=== PATIENT | female | born 1960 | race African-American/Black ===

== ENCOUNTER 2021-06-08 08:50 | Inpatient (IN) ==
[2021-06-08] MEDS ORDERED: DEXTROSE 50% 25 GM/50 ML VIAL IV PRN ×2 (09:06)
[2021-06-08] MEDS ORDERED: GLUCAGON 1 MG VIAL IM PRN ×2 (09:06)
[2021-06-08 09:56] LABS: Basophils % 0.3 % (0.0-0.8); Eosinophils # 0.4 10*3/uL (0.0-0.87); Eosinophils % 5.9 % (0.00-10.9); Hematocrit 32.1 VOL% (35.7-47.0); Hemoglobin 9.5 GM/DL (12.0-16.0); Immature Granulocytes % 0.7 %; Immature Granulocytes Absolute 0.05 #; Lymphocytes # 0.7 10*3/uL (1.4-4.0); Lymphocytes % 9.9 % (21.3-54.2); Mean Corpuscular HGB Conc 29.6 GM/DL (32-36); Mean Corpuscular Volume 86.3 FL (87-102); Mean Platelet Volume 9.5 FL (9.6-12.0); Monocytes % 6.8 % (1.7-12.7); Neutrophils % 76.4 % (38.7-73.9); Platelet Count 328 T/CUMM (130-400); Red Blood Count 3.72 MC/CUMM (3.8-5.5); Red Cell Distribution Width 16.4 % (9.3-17.3)
[2021-06-08] MEDS ORDERED: TRIAMCINOLONE ACETONIDE 0.5% TOP PRN (10:14)
[2021-06-08 10:19] LABS: Alanine Aminotransferase 18 U/L (13-56); Albumin 3.4 G/DL (3.4-5.0); Alkaline Phosphatase 72 U/L (45-117); Aspartate Amino Transferase 30 U/L (0-37); Bilirubin,Total < 0.39 MG/DL (0.20-1.00); Blood Urea Nitrogen 9 MG/DL (7-18); Calcium 8.9 MG/DL (8.5-10.1); Carbon Dioxide 29 MMOL/L (21-32); Estimated Glom Filtration Rate 95 ML/MIN; Glucose 146 MG/DL (74-106); Osmolality,Calculated 271.1 MOS/KG (273-304); Potassium 3.8 MMOL/L (3.5-5.1); Sodium 135 MMOL/L (136-145); Total Protein 8.6 G/DL (6.4-8.2)
[2021-06-08] MEDS: SODIUM CHLORIDE 0.9% 1,000 ML IV SCH (10:40)
[2021-06-08 11:33] LABS: ABG HCO3 27.9 MMOL/L (20-26); ABG Oxygen Saturation 95.9 % (95-100); ABG PCO2 43.1 MM HG (35-48); ABG PH 7.431 (7.35-7.45); ABG PO2 84.1 MM HG (80-95); ABG TCO2 26.1 MMOL/L (23-27)
[2021-06-08] MEDS: INSULIN REGULAR 100 UNIT/ML SUBCUT SCH ×3 (12:56→21:12)
[2021-06-08] MEDS ORDERED: CLORAZEPATE 3.75 MG TABLET PO PRN (12:59)
[2021-06-08] MEDS: CHLORHEXIDINE 4% SOLN 118 ML BOTTLE TOP SCH ×2 (14:06→21:12)
[2021-06-08] MEDS: carvediloL 25 MG TABLET PO SCH (17:24)
[2021-06-08] MEDS ORDERED: FLUTICASONE 50 MCG NASAL SPRAY 16 GM BOTTLE BOTH NARES SCH (21:00)
[2021-06-08] MEDS: CHLORHEXIDINE 0.12% ORAL RINSE 60 ML BOTTLE SWISH/SPIT SCH (21:12)
[2021-06-09] MEDS: CHLORHEXIDINE 4% SOLN 118 ML BOTTLE TOP SCH ×2 (04:00→11:27)
[2021-06-09] MEDS ORDERED: PAPAVERINE 60 MG/2 ML VIAL ONE (04:22)
[2021-06-09] MEDS ORDERED: VANCOMYCIN 500 MG VIAL ONE (04:23)
[2021-06-09] MEDS ORDERED: VANCOMYCIN 1,000 MG VIAL ONE (04:23)
[2021-06-09] MEDS ORDERED: CEFUROXIME INJ 1,500 MG in SODIUM CHLORIDE 0.9% 100 ML IV ONE (05:00)
[2021-06-09] MEDS ORDERED: ETOMIDATE 40 MG/20 ML VIAL IV ONE (05:36)
[2021-06-09] MEDS ORDERED: LACTATED RINGERS 1,000 ML IV ONE (05:36)
[2021-06-09] MEDS ORDERED: MIDAZOLAM 10 MG/2 ML VIAL ONE ×3 (05:36)
[2021-06-09] MEDS ORDERED: SEVOFLURANE 1 UNIT/15 MINUTE INH ONE ×3 (05:36→13:02)
[2021-06-09] MEDS ORDERED: ePHEDrine 50 MG/ML VIAL ONE (05:36)
[2021-06-09] MEDS ORDERED: MINERAL OIL/PETROLATUM OPH OINT 3.5 GM TUBE ONE (05:36)
[2021-06-09] MEDS ORDERED: HEPARIN/NACL 0.9% 2 UNITS/ML 1,000 UNIT/500 ML BAG IV ONE (05:36)
[2021-06-09] MEDS ORDERED: PHENYLEPHRINE 10 MG/1 ML VIAL IV ONE (05:36)
[2021-06-09] MEDS ORDERED: NITROGLYCERIN DRIP 50 MG/250 ML BOTTLE IV ONE ×2 (05:36→09:02)
[2021-06-09] MEDS ORDERED: SODIUM CHLORIDE 0.9% 1,000 ML IV ONE (05:36)
[2021-06-09] MEDS ORDERED: VECURONIUM 10 MG VIAL IV ONE (05:36)
[2021-06-09] MEDS ORDERED: SUFentanil 250 MCG/5 ML AMP ONE (05:36)
[2021-06-09] MEDS ORDERED: CALCIUM CHLORIDE 1,000 MG/10 ML VIAL IV ONE (05:36)
[2021-06-09] MEDS ORDERED: LIDOCAINE 2% 5 ML VIAL ONE ×2 (05:36→11:32)
[2021-06-09] MEDS ORDERED: SODIUM CHLORIDE 0.9% 250 ML IV ONE (05:36)
[2021-06-09] MEDS ORDERED: AMINOCAPROIC ACID 5,000 MG/20 ML VIAL ONE (05:36)
[2021-06-09] MEDS ORDERED: PHENYLEPHRINE 1 MG/10 ML SYRINGE IV ONE (05:53)
[2021-06-09] MEDS ORDERED: LACTATED RINGERS 1,000 ML IV SCH (06:00)
[2021-06-09] MEDS ORDERED: ALBUTEROL 2.5 MG/3 ML NEB RESP TX ONE (06:00)
[2021-06-09] MEDS ORDERED: LORazepam 1 MG TABLET PO ONE (06:00)
[2021-06-09] MEDS ORDERED: FAMOTIDINE 20 MG TABLET PO ONE (06:00)
[2021-06-09] MEDS ORDERED: FUROSEMIDE 20 MG/2 ML VIAL ONE ×3 (06:13→11:31)
[2021-06-09 07:42] LABS: ABG Base Excess 3.1 MMOL/L (-2.5-2.5); ABG HCO3 27.2 MMOL/L (20-26); ABG PCO2 43.4 MM HG (35-48); ABG PH 7.417 (7.35-7.45); ABG TCO2 25.8 MMOL/L (23-27); Glucose Heart Surgery 135 MG/DL (74-106); Hematocrit Heart Surgery 26.7 PERCENT (37-47); Hemoglobin Heart Surgery 8.6 G/DL (12.0-16.0); Ionized Calcium Arterial 1.19 MMOL/L (1.21-1.46); PCO2 Patient Temp Arterial 43.4 MMHG; PH Patient Temp Arterial 7.417; Patient Temperature 37 CELCIUS; Potassium Heart/CVR 3.8 MMOL/L (3.5-5.1); Sodium Heart/CVR 141 MMOL/L (135-145)
[2021-06-09 08:59] LABS: Bilirubin,Urine Negative (Negative); Blood, Urine Negative (Negative); Glucose,Urine (UA) Negative (Negative); Ketones,Urine Negative (Negative); Mucus,Urine Occasional /LPF (Occasional); Nitrite,Urine Negative (Negative); Protein,Urine Negative; RBC,Urine <1 /HPF (0-4); Squamous Epithelial Cell,Urine Occasional /HPF (0-10); Urine Appearance CLEAR (Clear); Urine Color Straw (Yellow); Urine Specific Gravity 1.012 (1.001-1.035); Urine Urobilinogen < 2.0 EU/DL (0.2-1.0)
[2021-06-09] MEDS ORDERED: SODIUM BICARBONATE 50 MEQ/50 ML VIAL IV ONE ×2 (10:24→11:32)
[2021-06-09] MEDS ORDERED: POTASSIUM CHLORIDE RIDER 20 MEQ/100 ML PREMIX IV ONE (10:25)
[2021-06-09] MEDS ORDERED: NITROPRUSSIDE 50 MG/2 ML VIAL ONE (10:25)
[2021-06-09] MEDS ORDERED: CALCIUM CHLORIDE 1,000 MG/10 ML SYRINGE IV ONE (10:26)
[2021-06-09] MEDS ORDERED: PHENYLEPHRINE DRIP 40 MG/250 ML PREMIX IV ONE (10:26)
[2021-06-09] MEDS ORDERED: diphenhydrAMINE 50 MG/1 ML VIAL ONE (10:35)
[2021-06-09] MEDS ORDERED: FAMOTIDINE 20 MG/2 ML VIAL IV ONE (10:35)
[2021-06-09 10:47] LABS: Hematocrit Heart Surgery 28.6 PERCENT (37-47); Hemoglobin Heart Surgery 9.2 G/DL (12.0-16.0); PCO2 Patient Temp Venous 38.6 MM HG; PH Patient Temp Venous 7.462; PO2 Patient Temp Venous 34.8 MM HG; Potassium Heart/CVR 4.7 MMOL/L (3.5-5.1); VBG Base Excess 3.8 MEQ/L (0-4); VBG HCO3 27.5 MEQ/L (24-28); VBG PCO2 44.6 MMHG (41-51); VBG PH 7.418; VBG PO2 42.8 MMHG (17-40); VBG Total CO2 26.6 MMOL/L
[2021-06-09 11:22] LABS: Hematocrit Heart Surgery 25.8 PERCENT (37-47); Hemoglobin Heart Surgery 8.3 G/DL (12.0-16.0); PCO2 Patient Temp Venous 41.3 MM HG; PH Patient Temp Venous 7.439; PO2 Patient Temp Venous 35.2 MM HG; Potassium Heart/CVR 4.1 MMOL/L (3.5-5.1); VBG Base Excess 3.6 MEQ/L (0-4); VBG HCO3 27.1 MEQ/L (24-28); VBG Oxygen Saturation 60.3 %; VBG PCO2 41.3 MMHG (41-51); VBG PH 7.439; VBG PO2 35.2 MMHG (17-40); VBG Total CO2 26.2 MMOL/L
[2021-06-09] MEDS: INSULIN REGULAR 100 UNIT/ML SUBCUT SCH ×2 (11:26→15:08)
[2021-06-09] MEDS: SODIUM CHLORIDE 0.9% 1,000 ML IV SCH (11:27)
[2021-06-09] MEDS: CHLORHEXIDINE 0.12% ORAL RINSE 60 ML BOTTLE SWISH/SPIT SCH ×2 (11:27→20:18)
[2021-06-09] MEDS ORDERED: MANNITOL 100 GM/500 ML BAG IV ONE (11:30)
[2021-06-09] MEDS ORDERED: MAGNESIUM SULFATE 5 GM/10 ML VIAL IV ONE (11:30)
[2021-06-09] MEDS ORDERED: DEXTROSE 5% KCL 20 MEQ 20 MEQ/1,000 ML BAG IV ONE (11:30)
[2021-06-09] MEDS ORDERED: HEPARIN 10,000 UNIT/10 ML VIAL ONE (11:31)
[2021-06-09] MEDS ORDERED: PROTAMINE SULFATE 250 MG/25 ML VIAL IV ONE (11:32)
[2021-06-09] MEDS ORDERED: PROTAMINE SULFATE 50 MG/5 ML VIAL IV ONE (11:32)
[2021-06-09] MEDS ORDERED: methylPREDNISolone SOD SUC 1,000 MG/8 ML VIAL ONE (11:32)
[2021-06-09 11:37] LABS: ABG Base Excess 1.9 MMOL/L (-2.5-2.5); ABG HCO3 26.1 MMOL/L (20-26); ABG PCO2 40.9 MM HG (35-48); ABG PH 7.419 (7.35-7.45); ABG TCO2 25.1 MMOL/L (23-27); Glucose Heart Surgery 248 MG/DL (74-106); Hematocrit Heart Surgery 20.7 PERCENT (37-47); Hemoglobin Heart Surgery 6.6 G/DL (12.0-16.0); Ionized Calcium Arterial 1.17 MMOL/L (1.21-1.46); PCO2 Patient Temp Arterial 40.9 MMHG; PH Patient Temp Arterial 7.419; Patient Temperature 37 CELCIUS; Potassium Heart/CVR 3.2 MMOL/L (3.5-5.1); Sodium Heart/CVR 138 MMOL/L (135-145)
[2021-06-09] MEDS ORDERED: NITROPRUSSIDE 100 MG in DEXTROSE 5% 250 ML IV PRN (11:58)
[2021-06-09] MEDS ORDERED: MAGNESIUM SULF RIDER 2 GM/50 ML PREMIX IV PRN (11:58)
[2021-06-09] MEDS ORDERED: ACETAMINOPHEN 650 MG SUPP RECTAL PRN (11:58)
[2021-06-09] MEDS ORDERED: MIDAZOLAM 2 MG/2 ML VIAL IV PRN (11:58)
[2021-06-09] MEDS ORDERED: ONDANSETRON 4 MG/2 ML VIAL IV PRN (11:58)
[2021-06-09] MEDS ORDERED: INSULIN REGULAR 100 UNIT/ML IV PRN (11:58)
[2021-06-09] MEDS ORDERED: MAGNESIUM SULF RIDER 4 GM/100 ML PREMIX IV PRN (11:58)
[2021-06-09] MEDS ORDERED: CHLORHEXIDINE 4% SOLN 118 ML BOTTLE TOP PRN (11:58)
[2021-06-09] MEDS ORDERED: VECURONIUM 10 MG VIAL IV PRN ×2 (11:58)
[2021-06-09] MEDS ORDERED: CALCIUM CHLORIDE 1,000 MG/10 ML SYRINGE IV PRN (11:58)
[2021-06-09] MEDS ORDERED: MIDAZOLAM 10 MG/2 ML VIAL IV PRN (11:58)
[2021-06-09] MEDS ORDERED: INSULIN REGULAR 100 UNIT/ML IV ONE (11:58)
[2021-06-09] MEDS ORDERED: DEXTROSE 50% 25 GM/50 ML VIAL IV PRN ×2 (11:58)
[2021-06-09] MEDS ORDERED: PHENYLEPHRINE DRIP 40 MG/250 ML PREMIX IV PRN (11:58)
[2021-06-09] MEDS ORDERED: INSULIN REGULAR DRIP 100 ML IV SCH (12:00)
[2021-06-09] MEDS: carvediloL 25 MG TABLET PO SCH (12:00)
[2021-06-09] MEDS ORDERED: SODIUM CHLORIDE 0.45% 1,000 ML IV SCH ×2 (12:00)
[2021-06-09 13:05] LABS: Basophils % 0.2 % (0.0-0.8); Eosinophils # 0.2 10*3/uL (0.0-0.87); Hematocrit 29.6 VOL% (35.7-47.0); Immature Granulocytes % 1.2 %; Immature Granulocytes Absolute 0.13 #; Lymphocytes # 0.7 10*3/uL (1.4-4.0); Lymphocytes % 5.9 % (21.3-54.2); Mean Corpuscular HGB Conc 30.4 GM/DL (32-36); Mean Platelet Volume 9.1 FL (9.6-12.0); Monocytes % 5.9 % (1.7-12.7); Neutrophils % 84.8 % (38.7-73.9); Platelet Count 256 T/CUMM (130-400); Red Blood Count 3.44 MC/CUMM (3.8-5.5); Red Cell Distribution Width 16.2 % (9.3-17.3); White Blood Count 11.3 T/CUMM (4-12)
[2021-06-09] MEDS: ALBUMIN 5% 12.5 GM/250 ML VIAL IV PRN ×2 (13:05→23:44)
[2021-06-09 13:06] LABS: ABG Base Excess 1.9 MMOL/L (-2.5-2.5); ABG HCO3 26.2 MMOL/L (20-26); ABG Oxygen Saturation 99.9 % (95-100); ABG PH 7.411 (7.35-7.45); ABG TCO2 24.5 MMOL/L (23-27); Glucose Heart Surgery 197 MG/DL (74-106); Hematocrit Heart Surgery 29.1 PERCENT (37-47); Hemoglobin Heart Surgery 9.4 G/DL (12.0-16.0); Potassium Heart/CVR 3.9 MMOL/L (3.5-5.1)
[2021-06-09] MEDS: LACTATED RINGERS 250 ML IV PRN ×7 (13:10→16:04)
[2021-06-09 13:17] LABS: INR 1.1; PT Patient Result 11.9 SECS (10.5-12.0); Partial Thromboplastin Time 29.9 SECS (23.9-33.8)
[2021-06-09] MEDS: POTASSIUM CHLORIDE RIDER 20 MEQ/100 ML PREMIX IV PRN ×2 (13:22→16:49)
[2021-06-09 13:24] LABS: CKMB % 1.7 %
[2021-06-09 13:30] LABS: Albumin 3.5 G/DL (3.4-5.0); Bilirubin,Total 0.5 MG/DL (0.20-1.00); Calcium 8.4 MG/DL (8.5-10.1); Osmolality,Calculated 279.5 MOS/KG (273-304); Potassium 3.9 MMOL/L (3.5-5.1); Total Protein 7.8 G/DL (6.4-8.2)
[2021-06-09] MEDS: MORPHINE 10 MG/1 ML VIAL IV PRN ×2 (13:59→19:11)
[2021-06-09 14:25] LABS: ABG Base Excess 2.4 MMOL/L (-2.5-2.5); ABG HCO3 26.6 MMOL/L (20-26); ABG Oxygen Saturation 99.3 % (95-100); ABG PCO2 42.2 MM HG (35-48); ABG PH 7.417 (7.35-7.45); Glucose Heart Surgery 284 MG/DL (74-106); Hematocrit Heart Surgery 28.5 PERCENT (37-47); Hemoglobin Heart Surgery 9.2 G/DL (12.0-16.0); Potassium Heart/CVR 3.9 MMOL/L (3.5-5.1)
[2021-06-09] MEDS: carvediloL 12.5 MG TABLET PER TUBE SCH ×2 (14:59→20:17)
[2021-06-09] MEDS: POTASSIUM CHLORIDE RIDER 10 MEQ/100 ML PREMIX IV PRN ×2 (15:15→17:25)
[2021-06-09 16:13] LABS: ABG Base Excess 1.9 MMOL/L (-2.5-2.5); ABG HCO3 26.8 MMOL/L (20-26); ABG Oxygen Saturation 98.5 % (95-100); ABG PCO2 43.3 MM HG (35-48); ABG PO2 139.7 MM HG (80-95); ABG TCO2 28.2 MMOL/L (23-27); Glucose Heart Surgery 238 MG/DL (74-106); Hemoglobin Heart Surgery 10.7 G/DL (12.0-16.0); Potassium Heart/CVR 3.9 MMOL/L (3.5-5.1)
[2021-06-09] MEDS: KETOROLAC 30 MG/1 ML VIAL IV SCH ×2 (16:50→21:29)
[2021-06-09] MEDS ORDERED: FUROSEMIDE 40 MG/4 ML VIAL IV ONE (18:17)
[2021-06-09] MEDS ORDERED: FUROSEMIDE 40 MG/4 ML VIAL IV PRN (18:17)
[2021-06-09 18:40] LABS: ABG Base Excess 2.1 MMOL/L (-2.5-2.5); ABG HCO3 26.9 MMOL/L (20-26); ABG Oxygen Saturation 98.7 % (95-100); ABG PCO2 42.7 MM HG (35-48); ABG PH 7.417 (7.35-7.45); ABG PO2 161.7 MM HG (80-95); ABG TCO2 28.2 MMOL/L (23-27); Glucose Heart Surgery 120 MG/DL (74-106); Hemoglobin Heart Surgery 11.6 G/DL (12.0-16.0)
[2021-06-09 20:01] LABS: ABG HCO3 26.2 MMOL/L (20-26); ABG Oxygen Saturation 99.1 % (95-100); ABG PCO2 46.5 MM HG (35-48); ABG PH 7.382 (7.35-7.45); ABG TCO2 24.7 MMOL/L (23-27); Glucose Heart Surgery 137 MG/DL (74-106); Hematocrit Heart Surgery 35.6 PERCENT (37-47); Hemoglobin Heart Surgery 11.6 G/DL (12.0-16.0)
[2021-06-09] MEDS: CEFUROXIME INJ 1,500 MG in SODIUM CHLORIDE 0.9% 100 ML IV SCH (20:17)
[2021-06-09 20:24] LABS: CKMB % 1.5 %
[2021-06-09 20:27] LABS: High Sensitive Troponin I* 5501.2 ng/L (0-54)
[2021-06-09 22:02] LABS: ABG Base Excess 2.5 MMOL/L (-2.5-2.5); ABG HCO3 26.6 MMOL/L (20-26); ABG Oxygen Saturation 98.3 % (95-100); ABG PCO2 49.6 MM HG (35-48); ABG PH 7.368 (7.35-7.45); ABG TCO2 25.7 MMOL/L (23-27); Glucose Heart Surgery 135 MG/DL (74-106); Hematocrit Heart Surgery 33.9 PERCENT (37-47); Potassium Heart/CVR 4.1 MMOL/L (3.5-5.1)
[2021-06-09 22:56] LABS: ABG Base Excess 2.2 MMOL/L (-2.5-2.5); ABG HCO3 26.4 MMOL/L (20-26); ABG PCO2 50.2 MM HG (35-48); ABG PH 7.361 (7.35-7.45); ABG TCO2 25.7 MMOL/L (23-27); Glucose Heart Surgery 132 MG/DL (74-106); Hematocrit Heart Surgery 33.7 PERCENT (37-47); Hemoglobin Heart Surgery 10.9 G/DL (12.0-16.0); Potassium Heart/CVR 4.1 MMOL/L (3.5-5.1)
[2021-06-10] MEDS: LACTATED RINGERS 250 ML IV PRN
[2021-06-10 00:04] LABS: ABG Base Excess 1.2 MMOL/L (-2.5-2.5); ABG HCO3 25.5 MMOL/L (20-26); ABG Oxygen Saturation 98.8 % (95-100); ABG PCO2 48.7 MM HG (35-48); ABG PH 7.357 (7.35-7.45); ABG TCO2 24.8 MMOL/L (23-27); Glucose Heart Surgery 126 MG/DL (74-106); Hematocrit Heart Surgery 31.9 PERCENT (37-47); Hemoglobin Heart Surgery 10.3 G/DL (12.0-16.0); Potassium Heart/CVR 4.1 MMOL/L (3.5-5.1)
[2021-06-10 04:00] LABS: ABG Base Excess 1.1 MMOL/L (-2.5-2.5); ABG HCO3 25.4 MMOL/L (20-26); ABG Oxygen Saturation 98.7 % (95-100); ABG PCO2 46.1 MM HG (35-48); ABG PH 7.371 (7.35-7.45); ABG TCO2 24.1 MMOL/L (23-27); Glucose Heart Surgery 149 MG/DL (74-106); Hematocrit Heart Surgery 33.8 PERCENT (37-47); Potassium Heart/CVR 4.1 MMOL/L (3.5-5.1)
[2021-06-10] MEDS: KETOROLAC 30 MG/1 ML VIAL IV SCH ×4 (04:00→21:04)
[2021-06-10 04:22] LABS: Basophils % 0.2 % (0.0-0.8); Hematocrit 34.7 VOL% (35.7-47.0); Hemoglobin 10.8 GM/DL (12.0-16.0); Immature Granulocytes % 1.8 %; Immature Granulocytes Absolute 0.24 #; Lymphocytes # 0.6 10*3/uL (1.4-4.0); Lymphocytes % 4.3 % (21.3-54.2); Mean Corpuscular HGB Conc 31.1 GM/DL (32-36); Mean Corpuscular Volume 85.3 FL (87-102); Mean Platelet Volume 9.7 FL (9.6-12.0); Monocytes % 5.9 % (1.7-12.7); Neutrophils % 87.8 % (38.7-73.9); Platelet Count 258 T/CUMM (130-400); Red Blood Count 4.07 MC/CUMM (3.8-5.5); Red Cell Distribution Width 16.1 % (9.3-17.3)
[2021-06-10 04:27] LABS: Alanine Aminotransferase 19 U/L (13-56); Albumin 3.6 G/DL (3.4-5.0); Alkaline Phosphatase 53 U/L (45-117); Aspartate Amino Transferase 37 U/L (0-37); Bilirubin,Direct < 0.100 MG/DL (0.0-0.20); Bilirubin,Total < 0.39 MG/DL (0.20-1.00); Blood Urea Nitrogen 14 MG/DL (7-18); CKMB % 1.2 %; Calcium 8.4 MG/DL (8.5-10.1); Carbon Dioxide 29 MMOL/L (21-32); Estimated Glom Filtration Rate 129 ML/MIN; Glucose 141 MG/DL (74-106); Osmolality,Calculated 283.3 MOS/KG (273-304); Potassium 4.1 MMOL/L (3.5-5.1); Sodium 141 MMOL/L (136-145); Total Protein 7.4 G/DL (6.4-8.2)
[2021-06-10 04:41] LABS: Hypochromasia Slight; Lymphocytes 1 % (20-55); Microcytosis Slight; Platelet Estimate Adequate; Segmented Neutrophils 91 % (50-85); Total Cells Counted 100
[2021-06-10 04:45] LABS: High Sensitive Troponin I* 5846.5 ng/L (0-54)
[2021-06-10 05:07] LABS: ABG Base Excess 1.6 MMOL/L (-2.5-2.5); ABG HCO3 26.5 MMOL/L (20-26); ABG Oxygen Saturation 97.8 % (95-100); ABG PCO2 43.1 MM HG (35-48); ABG PH 7.407 (7.35-7.45); ABG PO2 109.6 MM HG (80-95); ABG TCO2 27.8 MMOL/L (23-27); Glucose Heart Surgery 144 MG/DL (74-106); Hemoglobin Heart Surgery 11.1 G/DL (12.0-16.0); Potassium Heart/CVR 4.2 MMOL/L (3.5-5.1)
[2021-06-10] MEDS: CEFUROXIME INJ 1,500 MG in SODIUM CHLORIDE 0.9% 100 ML IV SCH ×2 (08:39→20:28)
[2021-06-10] MEDS: carvediloL 12.5 MG TABLET PER TUBE SCH (08:53)
[2021-06-10] MEDS: CHLORHEXIDINE 0.12% ORAL RINSE 60 ML BOTTLE SWISH/SPIT SCH ×2 (08:53→20:28)
[2021-06-10] MEDS ORDERED: FUROSEMIDE 40 MG/4 ML VIAL IV ONE (09:22)
[2021-06-10] MEDS: ASPIRIN EC 325 MG TABLET PO SCH (09:58)
[2021-06-10] MEDS ORDERED: GLUCAGON 1 MG VIAL IM PRN ×2 (10:25)
[2021-06-10] MEDS ORDERED: ALUMINUM/MAGNES/SIMETH MAX STR 30 ML UDCUP PO PRN (10:25)
[2021-06-10] MEDS ORDERED: MAGNESIUM SULF RIDER 2 GM/50 ML PREMIX IV PRN (10:25)
[2021-06-10] MEDS ORDERED: DEXTROSE 50% 25 GM/50 ML VIAL IV PRN ×2 (10:25)
[2021-06-10] MEDS ORDERED: MAGNESIUM HYDROXIDE SUSP 30 ML UDCUP PO PRN (10:25)
[2021-06-10] MEDS ORDERED: SODIUM CHLOR 0.45% KCL 20 MEQ 20 MEQ/1,000 ML BAG IV SCH (10:25)
[2021-06-10] MEDS ORDERED: POTASSIUM CHLORIDE 20 MEQ TABLET PO PRN (10:25)
[2021-06-10] MEDS ORDERED: ONDANSETRON 4 MG/2 ML VIAL IV PRN (10:25)
[2021-06-10] MEDS ORDERED: MAGNESIUM SULF RIDER 4 GM/100 ML PREMIX IV PRN (10:25)
[2021-06-10] MEDS ORDERED: INSULIN REGULAR 100 UNIT/ML SUBCUT SCH ×2 (11:30→12:00)
[2021-06-10 12:07] LABS: CKMB % 1.1 %
[2021-06-10 12:09] LABS: High Sensitive Troponin I* 5208.9 ng/L (0-54)
[2021-06-10] MEDS: INSULIN REGULAR 100 UNIT/ML SUBCUT SCH ×3 (12:09→20:51)
[2021-06-10] MEDS: SIMVASTATIN 10 MG TABLET PO SCH (20:28)
[2021-06-10] MEDS: FLUTICASONE 50 MCG NASAL SPRAY 16 GM BOTTLE BOTH NARES SCH (20:35)
[2021-06-10] MEDS ORDERED: carvediloL 12.5 MG TABLET PO SCH (21:00)
[2021-06-11] MEDS: INSULIN REGULAR 100 UNIT/ML SUBCUT SCH ×6 (01:01→21:36)
[2021-06-11] MEDS: HYDROmorphone 2 MG/1 ML VIAL IV PRN (01:33)
[2021-06-11 04:48] LABS: Basophils % 0.1 % (0.0-0.8); Eosinophils % 0.1 % (0.00-10.9); Hematocrit 32.5 VOL% (35.7-47.0); Hemoglobin 9.8 GM/DL (12.0-16.0); Immature Granulocytes Absolute 0.14 #; Lymphocytes # 0.8 10*3/uL (1.4-4.0); Lymphocytes % 5.6 % (21.3-54.2); Mean Corpuscular HGB Conc 30.2 GM/DL (32-36); Mean Corpuscular Volume 85.8 FL (87-102); Monocytes % 10.4 % (1.7-12.7); Neutrophils % 82.8 % (38.7-73.9); Platelet Count 263 T/CUMM (130-400); Red Blood Count 3.79 MC/CUMM (3.8-5.5); Red Cell Distribution Width 16.3 % (9.3-17.3); White Blood Count 14.1 T/CUMM (4-12)
[2021-06-11] MEDS: KETOROLAC 30 MG/1 ML VIAL IV SCH ×4 (05:08→22:28)
[2021-06-11 05:10] LABS: Alanine Aminotransferase 20 U/L (13-56); Albumin 3.2 G/DL (3.4-5.0); Alkaline Phosphatase 51 U/L (45-117); Aspartate Amino Transferase 28 U/L (0-37); Bilirubin,Direct < 0.100 MG/DL (0.0-0.20); Bilirubin,Total < 0.39 MG/DL (0.20-1.00); Blood Urea Nitrogen 34 MG/DL (7-18); Calcium 8.5 MG/DL (8.5-10.1); Carbon Dioxide 31 MMOL/L (21-32); Estimated Glom Filtration Rate 68 ML/MIN; Glucose 190 MG/DL (74-106); Osmolality,Calculated 285.8 MOS/KG (273-304); Potassium 4.3 MMOL/L (3.5-5.1); Sodium 137 MMOL/L (136-145); Total Protein 7.7 G/DL (6.4-8.2)
[2021-06-11 05:12] LABS: Alanine Aminotransferase 19 U/L (13-56); Albumin 3.1 G/DL (3.4-5.0); Aspartate Amino Transferase 28 U/L (0-37); Bilirubin,Direct < 0.050 MG/DL (0.0-0.20); Bilirubin,Total < 0.39 MG/DL (0.20-1.00); Total Protein 7.7 G/DL (6.4-8.2)
[2021-06-11 05:14] LABS: Alkaline Phosphatase 52 U/L (45-117); Bilirubin,Indirect 0.3 MG/DL (0.0-1.0)
[2021-06-11] MEDS ORDERED: FUROSEMIDE 40 MG/4 ML VIAL IV ONE (06:00)
[2021-06-11] MEDS: FERROUS SULFATE 325 MG TABLET PO SCH (09:26)
[2021-06-11] MEDS: ASPIRIN EC 325 MG TABLET PO SCH (09:26)
[2021-06-11] MEDS: LORATADINE 10 MG TABLET PO SCH (09:27)
[2021-06-11] MEDS: PANTOPRAZOLE 40 MG TABLET PO SCH (09:27)
[2021-06-11] MEDS: METOPROLOL TARTRATE 25 MG TABLET PO SCH ×2 (09:27→21:36)
[2021-06-11] MEDS: FOLIC ACID 1 MG TABLET PO SCH (09:27)
[2021-06-11] MEDS: DOCUSATE SODIUM 100 MG CAPSULE PO SCH (09:27)
[2021-06-11] MEDS: CHLORHEXIDINE 0.12% ORAL RINSE 60 ML BOTTLE SWISH/SPIT SCH ×2 (09:30→21:36)
[2021-06-11] MEDS: LEVOFLOXACIN 500 MG TABLET PO SCH (12:10)
[2021-06-11] MEDS: POLYETHYLENE GLYCOL POWDER 17 GM PACK PO SCH (14:37)
[2021-06-11] MEDS: SIMVASTATIN 10 MG TABLET PO SCH (21:36)
[2021-06-11] MEDS: FLUTICASONE 50 MCG NASAL SPRAY 16 GM BOTTLE BOTH NARES SCH (22:28)
[2021-06-12] MEDS: INSULIN REGULAR 100 UNIT/ML SUBCUT SCH ×6 (00:46→21:08)
[2021-06-12] MEDS: KETOROLAC 30 MG/1 ML VIAL IV SCH ×4 (04:36→21:08)
[2021-06-12 05:16] LABS: Basophils % 0.2 % (0.0-0.8); Eosinophils # 0.2 10*3/uL (0.0-0.87); Eosinophils % 1.4 % (0.00-10.9); Hematocrit 33.4 VOL% (35.7-47.0); Immature Granulocytes % 1.8 %; Immature Granulocytes Absolute 0.19 #; Lymphocytes % 9.5 % (21.3-54.2); Mean Corpuscular HGB Conc 29.9 GM/DL (32-36); Mean Corpuscular Volume 87.7 FL (87-102); Mean Platelet Volume 9.8 FL (9.6-12.0); Monocytes % 13.7 % (1.7-12.7); Neutrophils % 73.4 % (38.7-73.9); Platelet Count 256 T/CUMM (130-400); Red Blood Count 3.81 MC/CUMM (3.8-5.5); Red Cell Distribution Width 16.2 % (9.3-17.3); White Blood Count 10.5 T/CUMM (4-12)
[2021-06-12 05:55] LABS: Alanine Aminotransferase 24 U/L (13-56); Albumin 2.9 G/DL (3.4-5.0); Alkaline Phosphatase 68 U/L (45-117); Aspartate Amino Transferase 31 U/L (0-37); Bilirubin,Direct < 0.100 MG/DL (0.0-0.20); Blood Urea Nitrogen 35 MG/DL (7-18); Calcium 8.7 MG/DL (8.5-10.1); Carbon Dioxide 30 MMOL/L (21-32); Estimated Glom Filtration Rate 75 ML/MIN; Glucose 146 MG/DL (74-106); Osmolality,Calculated 285.7 MOS/KG (273-304); Potassium 3.8 MMOL/L (3.5-5.1); Sodium 138 MMOL/L (136-145); Total Protein 7.5 G/DL (6.4-8.2)
[2021-06-12 05:58] LABS: Alanine Aminotransferase 22 U/L (13-56); Albumin 2.8 G/DL (3.4-5.0); Alkaline Phosphatase 60 U/L (45-117); Aspartate Amino Transferase 32 U/L (0-37); Bilirubin,Direct < 0.050 MG/DL (0.0-0.20); Total Protein 7.3 G/DL (6.4-8.2)
[2021-06-12 06:10] LABS: Bilirubin,Indirect 0.9 MG/DL (0.0-1.0)
[2021-06-12 07:52] LABS: Band Neutrophils 16 % (0-10); Hypochromasia 1+; Metamyelocytes 1 %; Segmented Neutrophils 79 % (50-85); Total Cells Counted 100
[2021-06-12 07:53] LABS: Platelet Estimate Adequate
[2021-06-12] MEDS: POLYETHYLENE GLYCOL POWDER 17 GM PACK PO SCH (08:33)
[2021-06-12] MEDS: FOLIC ACID 1 MG TABLET PO SCH (08:33)
[2021-06-12] MEDS: FERROUS SULFATE 325 MG TABLET PO SCH (08:34)
[2021-06-12] MEDS: LEVOFLOXACIN 500 MG TABLET PO SCH (08:34)
[2021-06-12] MEDS: DOCUSATE SODIUM 100 MG CAPSULE PO SCH (08:34)
[2021-06-12] MEDS: PANTOPRAZOLE 40 MG TABLET PO SCH (08:34)
[2021-06-12] MEDS: METOPROLOL TARTRATE 25 MG TABLET PO SCH ×2 (08:34→21:09)
[2021-06-12] MEDS: LORATADINE 10 MG TABLET PO SCH (08:34)
[2021-06-12] MEDS: ASPIRIN EC 325 MG TABLET PO SCH (08:34)
[2021-06-12] MEDS: PRASUGREL 10 MG TABLET PO SCH (08:35)
[2021-06-12] MEDS: CHLORHEXIDINE 0.12% ORAL RINSE 60 ML BOTTLE SWISH/SPIT SCH ×2 (08:35→21:11)
[2021-06-12] MEDS: FUROSEMIDE 20 MG TABLET PO SCH (08:35)
[2021-06-12] MEDS: FLUTICASONE 50 MCG NASAL SPRAY 16 GM BOTTLE BOTH NARES SCH (21:09)
[2021-06-12] MEDS: SIMVASTATIN 10 MG TABLET PO SCH (21:09)
[2021-06-13] MEDS: INSULIN REGULAR 100 UNIT/ML SUBCUT SCH ×6 (00:11→21:08)
[2021-06-13] MEDS: KETOROLAC 30 MG/1 ML VIAL IV SCH ×4 (03:33→21:06)
[2021-06-13 04:42] LABS: Basophils % 0.3 % (0.0-0.8); Eosinophils # 0.3 10*3/uL (0.0-0.87); Eosinophils % 2.6 % (0.00-10.9); Hematocrit 30.6 VOL% (35.7-47.0); Hemoglobin 9.2 GM/DL (12.0-16.0); Immature Granulocytes % 3.7 %; Lymphocytes % 9.6 % (21.3-54.2); Mean Corpuscular HGB Conc 30.1 GM/DL (32-36); Mean Corpuscular Volume 87.4 FL (87-102); Mean Platelet Volume 10.1 FL (9.6-12.0); Monocytes % 11.9 % (1.7-12.7); Neutrophils % 71.9 % (38.7-73.9); Platelet Count 287 T/CUMM (130-400); Red Cell Distribution Width 15.9 % (9.3-17.3); White Blood Count 10.7 T/CUMM (4-12)
[2021-06-13 05:04] LABS: Albumin 2.7 G/DL (3.4-5.0); Bilirubin,Total 0.4 MG/DL (0.20-1.00); Calcium 8.6 MG/DL (8.5-10.1); Osmolality,Calculated 284.5 MOS/KG (273-304); Potassium 3.7 MMOL/L (3.5-5.1); Total Protein 7.4 G/DL (6.4-8.2)
[2021-06-13] MEDS ORDERED: LACTULOSE 20 GM/30 ML UDCUP PO PRN (08:26)
[2021-06-13] MEDS: FUROSEMIDE 20 MG TABLET PO SCH (09:02)
[2021-06-13] MEDS: FOLIC ACID 1 MG TABLET PO SCH (09:02)
[2021-06-13] MEDS: PANTOPRAZOLE 40 MG TABLET PO SCH (09:03)
[2021-06-13] MEDS: FERROUS SULFATE 325 MG TABLET PO SCH (09:03)
[2021-06-13] MEDS: ASPIRIN EC 81 MG TABLET PO SCH (09:03)
[2021-06-13] MEDS: LEVOFLOXACIN 500 MG TABLET PO SCH (09:03)
[2021-06-13] MEDS: DOCUSATE SODIUM 100 MG CAPSULE PO SCH (09:03)
[2021-06-13] MEDS: CHLORHEXIDINE 0.12% ORAL RINSE 60 ML BOTTLE SWISH/SPIT SCH ×2 (09:04→21:16)
[2021-06-13] MEDS: METOPROLOL TARTRATE 25 MG TABLET PO SCH ×2 (09:04→21:07)
[2021-06-13] MEDS: POLYETHYLENE GLYCOL POWDER 17 GM PACK PO SCH (09:04)
[2021-06-13] MEDS: PRASUGREL 10 MG TABLET PO SCH (09:04)
[2021-06-13] MEDS: LORATADINE 10 MG TABLET PO SCH (09:04)
[2021-06-13] MEDS: SIMVASTATIN 10 MG TABLET PO SCH (21:07)
[2021-06-13] MEDS: FLUTICASONE 50 MCG NASAL SPRAY 16 GM BOTTLE BOTH NARES SCH (21:08)
[2021-06-14] MEDS: ACETAMINOPHEN 325 MG TABLET PO PRN (00:13)
[2021-06-14] MEDS: INSULIN REGULAR 100 UNIT/ML SUBCUT SCH ×7 (00:13→22:46)
[2021-06-14] MEDS: KETOROLAC 30 MG/1 ML VIAL IV SCH ×2 (04:05→10:20)
[2021-06-14 05:19] LABS: Basophils % 0.3 % (0.0-0.8); Eosinophils # 0.4 10*3/uL (0.0-0.87); Hematocrit 28.3 VOL% (35.7-47.0); Hemoglobin 8.6 GM/DL (12.0-16.0); Immature Granulocytes % 3.6 %; Immature Granulocytes Absolute 0.34 #; Lymphocytes % 10.5 % (21.3-54.2); Mean Corpuscular HGB Conc 30.4 GM/DL (32-36); Mean Corpuscular Volume 86.8 FL (87-102); Mean Platelet Volume 9.8 FL (9.6-12.0); Neutrophils % 68.6 % (38.7-73.9); Platelet Count 315 T/CUMM (130-400); Red Blood Count 3.26 MC/CUMM (3.8-5.5); Red Cell Distribution Width 15.7 % (9.3-17.3); White Blood Count 9.5 T/CUMM (4-12)
[2021-06-14 05:39] LABS: Alanine Aminotransferase 49 U/L (13-56); Albumin 2.7 G/DL (3.4-5.0); Alkaline Phosphatase 102 U/L (45-117); Aspartate Amino Transferase 47 U/L (0-37); Bilirubin,Direct < 0.100 MG/DL (0.0-0.20); Bilirubin,Indirect 0.3 MG/DL (0.0-1.0); Bilirubin,Total < 0.39 MG/DL (0.20-1.00); Blood Urea Nitrogen 15 MG/DL (7-18); Calcium 8.5 MG/DL (8.5-10.1); Carbon Dioxide 29 MMOL/L (21-32); Estimated Glom Filtration Rate 110 ML/MIN; Glucose 160 MG/DL (74-106); Osmolality,Calculated 280.5 MOS/KG (273-304); Potassium 4.1 MMOL/L (3.5-5.1); Sodium 139 MMOL/L (136-145); Total Protein 7.4 G/DL (6.4-8.2)
[2021-06-14] MEDS: ASPIRIN EC 81 MG TABLET PO SCH (09:39)
[2021-06-14] MEDS: METOPROLOL TARTRATE 25 MG TABLET PO SCH ×2 (09:39→20:37)
[2021-06-14] MEDS: LORATADINE 10 MG TABLET PO SCH (09:39)
[2021-06-14] MEDS: FUROSEMIDE 20 MG TABLET PO SCH (09:39)
[2021-06-14] MEDS: POLYETHYLENE GLYCOL POWDER 17 GM PACK PO SCH (09:40)
[2021-06-14] MEDS: DOCUSATE SODIUM 100 MG CAPSULE PO SCH (09:40)
[2021-06-14] MEDS: FOLIC ACID 1 MG TABLET PO SCH (09:40)
[2021-06-14] MEDS: LEVOFLOXACIN 500 MG TABLET PO SCH (09:40)
[2021-06-14] MEDS: FERROUS SULFATE 325 MG TABLET PO SCH (09:40)
[2021-06-14] MEDS: PRASUGREL 10 MG TABLET PO SCH (09:40)
[2021-06-14] MEDS: CHLORHEXIDINE 0.12% ORAL RINSE 60 ML BOTTLE SWISH/SPIT SCH ×2 (09:42→20:36)
[2021-06-14] MEDS: PANTOPRAZOLE 40 MG TABLET PO SCH (09:43)
[2021-06-14] MEDS: SIMVASTATIN 10 MG TABLET PO SCH (20:37)
[2021-06-14] MEDS: FLUTICASONE 50 MCG NASAL SPRAY 16 GM BOTTLE BOTH NARES SCH (20:37)
[2021-06-14] MEDS: oxyCODONE/ACETAMINOPHEN 5-325 MG TABLET PO PRN ×2 (20:38→23:06)
[2021-06-14] MEDS: ZALEPLON 5 MG CAPSULE PO PRN (23:05)
[2021-06-15 06:06] LABS: Basophils % 0.4 % (0.0-0.8); Eosinophils # 0.3 10*3/uL (0.0-0.87); Eosinophils % 3.4 % (0.00-10.9); Hematocrit 34.7 VOL% (35.7-47.0); Immature Granulocytes % 4.6 %; Immature Granulocytes Absolute 0.39 #; Lymphocytes % 11.6 % (21.3-54.2); Mean Corpuscular HGB Conc 30.8 GM/DL (32-36); Mean Corpuscular Volume 84.4 FL (87-102); Mean Platelet Volume 10.3 FL (9.6-12.0); Monocytes % 15.1 % (1.7-12.7); Neutrophils % 64.9 % (38.7-73.9); Platelet Count 303 T/CUMM (130-400); Red Cell Distribution Width 15.5 % (9.3-17.3); White Blood Count 8.5 T/CUMM (4-12)
[2021-06-15 06:20] LABS: Hemoglobin 10.7 GM/DL (12.0-16.0); Red Blood Count 4.11 MC/CUMM (3.8-5.5)
[2021-06-15 06:42] LABS: Alanine Aminotransferase 37 U/L (13-56); Albumin 2.8 G/DL (3.4-5.0); Alkaline Phosphatase 98 U/L (45-117); Aspartate Amino Transferase 28 U/L (0-37); Bilirubin,Direct < 0.100 MG/DL (0.0-0.20); Bilirubin,Indirect 1.3 MG/DL (0.0-1.0); Blood Urea Nitrogen 14 MG/DL (7-18); Calcium 9.2 MG/DL (8.5-10.1); Carbon Dioxide 28 MMOL/L (21-32); Estimated Glom Filtration Rate 95 ML/MIN; Glucose 156 MG/DL (74-106); Osmolality,Calculated 280.5 MOS/KG (273-304); Potassium 4.2 MMOL/L (3.5-5.1); Sodium 139 MMOL/L (136-145); Total Protein 7.6 G/DL (6.4-8.2)
[2021-06-15] MEDS: INSULIN REGULAR 100 UNIT/ML SUBCUT SCH ×4 (08:53→22:22)
[2021-06-15] MEDS ORDERED: sitaGLIPtin 25 MG TABLET PO SCH (09:00)
[2021-06-15] MEDS: POLYETHYLENE GLYCOL POWDER 17 GM PACK PO SCH (09:31)
[2021-06-15] MEDS: DOCUSATE SODIUM 100 MG CAPSULE PO SCH (09:32)
[2021-06-15] MEDS: FOLIC ACID 1 MG TABLET PO SCH (09:32)
[2021-06-15] MEDS: oxyCODONE/ACETAMINOPHEN 5-325 MG TABLET PO PRN (09:33)
[2021-06-15] MEDS: FUROSEMIDE 20 MG TABLET PO SCH (09:33)
[2021-06-15] MEDS: METOPROLOL TARTRATE 50 MG TABLET PO SCH ×2 (09:33→22:20)
[2021-06-15] MEDS: LEVOFLOXACIN 500 MG TABLET PO SCH (09:33)
[2021-06-15] MEDS: PANTOPRAZOLE 40 MG TABLET PO SCH (09:33)
[2021-06-15] MEDS: LORATADINE 10 MG TABLET PO SCH (09:34)
[2021-06-15] MEDS: ASPIRIN EC 81 MG TABLET PO SCH (09:34)
[2021-06-15] MEDS: FERROUS SULFATE 325 MG TABLET PO SCH (09:34)
[2021-06-15] MEDS: PRASUGREL 10 MG TABLET PO SCH (09:34)
[2021-06-15] MEDS: CHLORHEXIDINE 0.12% ORAL RINSE 60 ML BOTTLE SWISH/SPIT SCH ×2 (09:39→22:19)
[2021-06-15] MEDS: KETOROLAC 30 MG/1 ML VIAL IV SCH ×3 (10:57→22:21)
[2021-06-15] MEDS: ACETAMINOPHEN 325 MG TABLET PO PRN (11:05)
[2021-06-15 12:41] LABS: Bacteria,Urine Occasional /HPF (Few); Bilirubin,Urine Negative (Negative); Blood, Urine Negative (Negative); Glucose,Urine (UA) Negative (Negative); Ketones,Urine Negative (Negative); Mucus,Urine Occasional /LPF (Occasional); Nitrite,Urine Negative (Negative); Protein,Urine 30 MG/DL; RBC,Urine 3 /HPF (0-4); Squamous Epithelial Cell,Urine Occasional /HPF (0-10); Urine Appearance CLEAR (Clear); Urine Color Yellow (Yellow); Urine Specific Gravity 1.018 (1.001-1.035); Urine Urobilinogen < 2.0 EU/DL (0.2-1.0)
[2021-06-15] MEDS: ALBUTEROL/IPRATROPIUM 3 ML NEB RESP TX SCH ×2 (13:03→19:35)
[2021-06-15] MEDS: FLUTICASONE 50 MCG NASAL SPRAY 16 GM BOTTLE BOTH NARES SCH (22:19)
[2021-06-15] MEDS: SIMVASTATIN 10 MG TABLET PO SCH (22:20)
[2021-06-16] MEDS: ALBUTEROL/IPRATROPIUM 3 ML NEB RESP TX SCH ×4 (01:49→19:50)
[2021-06-16 05:54] LABS: Basophils % 0.3 % (0.0-0.8); Eosinophils # 0.2 10*3/uL (0.0-0.87); Eosinophils % 2.8 % (0.00-10.9); Hematocrit 39.8 VOL% (35.7-47.0); Hemoglobin 12.1 GM/DL (12.0-16.0); Immature Granulocytes % 3.7 %; Immature Granulocytes Absolute 0.29 #; Lymphocytes # 0.7 10*3/uL (1.4-4.0); Lymphocytes % 9.1 % (21.3-54.2); Mean Corpuscular HGB Conc 30.4 GM/DL (32-36); Mean Corpuscular Volume 85.4 FL (87-102); Mean Platelet Volume 10.2 FL (9.6-12.0); Neutrophils % 70.1 % (38.7-73.9); Platelet Count 217 T/CUMM (130-400); Red Blood Count 4.66 MC/CUMM (3.8-5.5); Red Cell Distribution Width 15.8 % (9.3-17.3); White Blood Count 7.8 T/CUMM (4-12)
[2021-06-16 06:09] LABS: Calcium 8.8 MG/DL (8.5-10.1); Osmolality,Calculated 278.8 MOS/KG (273-304); Potassium 4.1 MMOL/L (3.5-5.1)
[2021-06-16] MEDS: KETOROLAC 30 MG/1 ML VIAL IV SCH (06:31)
[2021-06-16] MEDS ORDERED: KETOROLAC 30 MG/1 ML VIAL IV PRN ×2 (07:08→07:14)
[2021-06-16] MEDS ORDERED: METHOTREXATE 2.5 MG TABLET PO SCH (09:00)
[2021-06-16] MEDS: POLYETHYLENE GLYCOL POWDER 17 GM PACK PO SCH (10:32)
[2021-06-16] MEDS: DOCUSATE SODIUM 100 MG CAPSULE PO SCH (10:33)
[2021-06-16] MEDS: PRASUGREL 10 MG TABLET PO SCH (10:33)
[2021-06-16] MEDS: sitaGLIPtin 25 MG TABLET PO SCH (10:33)
[2021-06-16] MEDS: PANTOPRAZOLE 40 MG TABLET PO SCH (10:33)
[2021-06-16] MEDS: LEVOFLOXACIN 500 MG TABLET PO SCH (10:35)
[2021-06-16] MEDS: LORATADINE 10 MG TABLET PO SCH (10:35)
[2021-06-16] MEDS: METOPROLOL TARTRATE 50 MG TABLET PO SCH ×2 (10:35→21:28)
[2021-06-16] MEDS: FUROSEMIDE 20 MG TABLET PO SCH (10:36)
[2021-06-16] MEDS: ASPIRIN EC 81 MG TABLET PO SCH (10:36)
[2021-06-16] MEDS: FERROUS SULFATE 325 MG TABLET PO SCH (10:37)
[2021-06-16] MEDS: CHLORHEXIDINE 0.12% ORAL RINSE 60 ML BOTTLE SWISH/SPIT SCH ×2 (10:37→21:29)
[2021-06-16] MEDS: FOLIC ACID 1 MG TABLET PO SCH (10:37)
[2021-06-16] MEDS: INSULIN REGULAR 100 UNIT/ML SUBCUT SCH ×4 (10:38→21:29)
[2021-06-16] MEDS: oxyCODONE/ACETAMINOPHEN 5-325 MG TABLET PO PRN ×2 (16:53→22:09)
[2021-06-16] MEDS: SIMVASTATIN 10 MG TABLET PO SCH (21:28)
[2021-06-16] MEDS: FLUTICASONE 50 MCG NASAL SPRAY 16 GM BOTTLE BOTH NARES SCH (21:29)
[2021-06-16] MEDS: ZALEPLON 5 MG CAPSULE PO PRN (22:09)
[2021-06-16] MEDS: BUDESONIDE/FORMOTEROL 160-4.5 INHALER 6 GM INH SCH (22:41)
[2021-06-17] MEDS: ALBUTEROL/IPRATROPIUM 3 ML NEB RESP TX SCH ×4 (00:44→23:06)
[2021-06-17] MEDS: HYDROmorphone 2 MG/1 ML VIAL IV PRN (02:07)
[2021-06-17] MEDS ORDERED: BENZONATATE 100 MG CAPSULE PO PRN (03:10)
[2021-06-17] MEDS: BENZONATATE 100 MG CAPSULE PO PRN ×2 (03:32→23:45)
[2021-06-17 07:42] LABS: Calcium 8.9 MG/DL (8.5-10.1); Osmolality,Calculated 273.4 MOS/KG (273-304); Potassium 4.4 MMOL/L (3.5-5.1)
[2021-06-17] MEDS: LEVOFLOXACIN 500 MG TABLET PO SCH (09:08)
[2021-06-17] MEDS: FERROUS SULFATE 325 MG TABLET PO SCH (09:08)
[2021-06-17] MEDS: PRASUGREL 10 MG TABLET PO SCH (09:08)
[2021-06-17] MEDS: POLYETHYLENE GLYCOL POWDER 17 GM PACK PO SCH (09:08)
[2021-06-17] MEDS: sitaGLIPtin 25 MG TABLET PO SCH (09:08)
[2021-06-17] MEDS: LORATADINE 10 MG TABLET PO SCH (09:08)
[2021-06-17] MEDS: INSULIN REGULAR 100 UNIT/ML SUBCUT SCH ×4 (09:08→20:34)
[2021-06-17] MEDS: PANTOPRAZOLE 40 MG TABLET PO SCH (09:08)
[2021-06-17] MEDS: METOPROLOL TARTRATE 50 MG TABLET PO SCH ×2 (09:08→20:38)
[2021-06-17] MEDS: FUROSEMIDE 20 MG TABLET PO SCH (09:09)
[2021-06-17] MEDS: DOCUSATE SODIUM 100 MG CAPSULE PO SCH (09:09)
[2021-06-17] MEDS: ASPIRIN EC 81 MG TABLET PO SCH (09:09)
[2021-06-17] MEDS: BUDESONIDE/FORMOTEROL 160-4.5 INHALER 6 GM INH SCH ×2 (09:09→20:33)
[2021-06-17] MEDS: CHLORHEXIDINE 0.12% ORAL RINSE 60 ML BOTTLE SWISH/SPIT SCH ×2 (09:09→20:33)
[2021-06-17] MEDS: FOLIC ACID 1 MG TABLET PO SCH (09:09)
[2021-06-17] MEDS: oxyCODONE/ACETAMINOPHEN 5-325 MG TABLET PO PRN ×2 (13:56→20:31)
[2021-06-17] MEDS: SIMVASTATIN 10 MG TABLET PO SCH (20:31)
[2021-06-17] MEDS: FLUTICASONE 50 MCG NASAL SPRAY 16 GM BOTTLE BOTH NARES SCH (20:33)
[2021-06-17] MEDS: ACETAMINOPHEN 325 MG TABLET PO PRN (23:46)
[2021-06-18] MEDS: ALBUTEROL/IPRATROPIUM 3 ML NEB RESP TX SCH ×2 (00:50→07:07)
[2021-06-18 04:06] LABS: Basophils % 0.3 % (0.0-0.8); Eosinophils # 0.3 10*3/uL (0.0-0.87); Eosinophils % 3.6 % (0.00-10.9); Hematocrit 26.5 VOL% (35.7-47.0); Immature Granulocytes % 2.4 %; Immature Granulocytes Absolute 0.23 #; Lymphocytes # 1.3 10*3/uL (1.4-4.0); Lymphocytes % 13.2 % (21.3-54.2); Mean Corpuscular HGB Conc 30.2 GM/DL (32-36); Mean Corpuscular Volume 87.2 FL (87-102); Mean Platelet Volume 10.1 FL (9.6-12.0); Monocytes % 10.7 % (1.7-12.7); Neutrophils % 69.8 % (38.7-73.9); Red Cell Distribution Width 15.6 % (9.3-17.3); White Blood Count 9.5 T/CUMM (4-12)
[2021-06-18 04:10] LABS: Red Blood Count 3.04 MC/CUMM (3.8-5.5)
[2021-06-18 04:11] LABS: Platelet Count 318 T/CUMM (130-400)
[2021-06-18 04:36] LABS: Eosinophils 4 % (0-10); Lymphocytes 8 % (20-55); Metamyelocytes 3 %; Platelet Estimate Adequate; Segmented Neutrophils 70 % (50-85); Total Cells Counted 100
[2021-06-18] MEDS: oxyCODONE/ACETAMINOPHEN 5-325 MG TABLET PO PRN (06:16)
[2021-06-18] MEDS: INSULIN REGULAR 100 UNIT/ML SUBCUT SCH ×2 (09:06→12:40)
[2021-06-18 09:15] VITALS: BP 134/86
[2021-06-18] MEDS: POLYETHYLENE GLYCOL POWDER 17 GM PACK PO SCH (09:39)
[2021-06-18] MEDS: PRASUGREL 10 MG TABLET PO SCH (09:39)
[2021-06-18] MEDS: LEVOFLOXACIN 500 MG TABLET PO SCH (09:39)
[2021-06-18] MEDS: METOPROLOL TARTRATE 50 MG TABLET PO SCH (09:40)
[2021-06-18] MEDS: DOCUSATE SODIUM 100 MG CAPSULE PO SCH (09:40)
[2021-06-18] MEDS: FERROUS SULFATE 325 MG TABLET PO SCH (09:40)
[2021-06-18] MEDS: ASPIRIN EC 81 MG TABLET PO SCH (09:40)
[2021-06-18] MEDS: FOLIC ACID 1 MG TABLET PO SCH (09:40)
[2021-06-18] MEDS: PANTOPRAZOLE 40 MG TABLET PO SCH (09:40)
[2021-06-18] MEDS: FUROSEMIDE 20 MG TABLET PO SCH (09:40)
[2021-06-18] MEDS: CHLORHEXIDINE 0.12% ORAL RINSE 60 ML BOTTLE SWISH/SPIT SCH (09:41)
[2021-06-18] MEDS: sitaGLIPtin 25 MG TABLET PO SCH (09:41)
[2021-06-18] MEDS: LORATADINE 10 MG TABLET PO SCH (09:41)
[2021-06-18] MEDS: BUDESONIDE/FORMOTEROL 160-4.5 INHALER 6 GM INH SCH (09:42)
[2021-06-18] MEDS: BENZONATATE 100 MG CAPSULE PO PRN (11:47)
== END 2021-06-18 13:23 | disposition home health service (06) | DRG 236 ==
LOC: N.TELES 09:04 → N.CVR 06-09 11:53 → N.TELES 06-10 11:12

== ENCOUNTER 2021-09-09 14:09 | Inpatient (IN) ==
[2021-09-09] MEDS ORDERED: ALBUTEROL/IPRATROPIUM 3 ML NEB RESP TX STA (22:44)
[2021-09-09] MEDS ORDERED: LEVOFLOXACIN INJ 750 MG/150 ML PREMIX IV STA (22:44)
[2021-09-09] MEDS ORDERED: methylPREDNISolone SOD SUC 125 MG/2 ML VIAL IV STA (22:44)
[2021-09-09] MEDS ORDERED: FUROSEMIDE 100 MG/10 ML VIAL IV STA (22:44)
[2021-09-09] MEDS ORDERED: ONDANSETRON 4 MG/2 ML VIAL IV STA (22:44)
[2021-09-09 23:30] LABS: Basophils % 0.2 % (0.0-0.8); Eosinophils # 1.1 10*3/uL (0.0-0.87); Eosinophils % 12.2 % (0.00-10.9); Immature Granulocytes % 0.9 %; Immature Granulocytes Absolute 0.08 #; Lymphocytes # 0.8 10*3/uL (1.4-4.0); Lymphocytes % 9.5 % (21.3-54.2); Mean Platelet Volume 9.2 FL (9.6-12.0); Monocytes % 7.8 % (1.7-12.7); Neutrophils % 69.4 % (38.7-73.9); Platelet Count 369 T/CUMM (130-400); Red Blood Count 3.57 MC/CUMM (3.8-5.5); Red Cell Distribution Width 17.2 % (9.3-17.3); White Blood Count 8.9 T/CUMM (4-12)
[2021-09-09 23:40] LABS: PT Patient Result 11.7 SECS (10.5-12.0)
[2021-09-09 23:54] LABS: Alanine Aminotransferase 33 U/L (13-56); Albumin 2.6 G/DL (3.4-5.0); Alkaline Phosphatase 75 U/L (45-117); Aspartate Amino Transferase 49 U/L (0-37); Bilirubin,Total < 0.39 MG/DL (0.20-1.00); Blood Urea Nitrogen 13 MG/DL (7-18); Calcium 8.7 MG/DL (8.5-10.1); Carbon Dioxide 27 MMOL/L (21-32); Estimated Glom Filtration Rate 92 ML/MIN; Glucose 240 MG/DL (74-106); Osmolality,Calculated 269.7 MOS/KG (273-304); Potassium 3.7 MMOL/L (3.5-5.1); Sodium 131 MMOL/L (136-145); Total Protein 7.8 G/DL (6.4-8.2)
[2021-09-10 00:31] LABS: Bilirubin,Urine Negative (Negative); Blood, Urine Negative (Negative); Glucose,Urine (UA) Negative (Negative); Hyaline Casts,Urine 7 /LPF (0-3); Ketones,Urine Negative (Negative); Mucus,Urine Occasional /LPF (Occasional); Nitrite,Urine Negative (Negative); Protein,Urine 30 MG/DL; RBC,Urine 2 /HPF (0-4); Squamous Epithelial Cell,Urine Occasional /HPF (0-10); Urine Appearance CLEAR (Clear); Urine Color Yellow (Yellow); Urine Specific Gravity 1.015 (1.001-1.035); Urine Urobilinogen < 2.0 EU/DL (<2.0)
[2021-09-10 01:19] LABS: Eosinophils 10 % (0-10); Lymphocytes 10 % (20-55); Segmented Neutrophils 76 % (50-85)
[2021-09-10 01:27] LABS: Hypochromia 2+; Platelet Estimate Normal
[2021-09-10 01:28] LABS: Ovalocytes 1+; Reactive Lymphocytes Few; Total Cells Counted 100
[2021-09-10] MEDS ORDERED: ALUMINUM/MAGNES/SIMETH MAX STR 30 ML UDCUP PO PRN (01:57)
[2021-09-10] MEDS ORDERED: ONDANSETRON 4 MG/2 ML VIAL IV PRN (01:57)
[2021-09-10] MEDS ORDERED: hydrALAZINE 20 MG/1 ML VIAL IV PRN (01:57)
[2021-09-10] MEDS ORDERED: diphenhydrAMINE 2% CREAM 28 GM TUBE TOP PRN (01:57)
[2021-09-10] MEDS ORDERED: GLUCAGON 1 MG VIAL IM PRN (01:57)
[2021-09-10] MEDS ORDERED: DEXTROSE 50% 25 GM/50 ML SYRINGE IV PRN (01:57)
[2021-09-10] MEDS: diphenhydrAMINE CAP 25 MG CAPSULE PO PRN (02:51)
[2021-09-10 04:58] LABS: Basophils % 0.1 % (0.0-0.8); Eosinophils # 0.1 10*3/uL (0.0-0.87); Eosinophils % 0.9 % (0.00-10.9); Hematocrit 32.5 VOL% (35.7-47.0); Hemoglobin 9.5 GM/DL (12.0-16.0); Immature Granulocytes % 0.8 %; Immature Granulocytes Absolute 0.07 #; Lymphocytes # 0.6 10*3/uL (1.4-4.0); Lymphocytes % 6.6 % (21.3-54.2); Mean Corpuscular HGB Conc 29.2 GM/DL (32-36); Mean Corpuscular Volume 85.3 FL (87-102); Mean Platelet Volume 9.5 FL (9.6-12.0); Monocytes % 2.3 % (1.7-12.7); Neutrophils % 89.3 % (38.7-73.9); Platelet Count 386 T/CUMM (130-400); Red Blood Count 3.81 MC/CUMM (3.8-5.5); Red Cell Distribution Width 17.3 % (9.3-17.3); White Blood Count 8.7 T/CUMM (4-12)
[2021-09-10 05:15] LABS: Calcium 8.7 MG/DL (8.5-10.1); Osmolality,Calculated 277.4 MOS/KG (273-304); Potassium 4.3 MMOL/L (3.5-5.1)
[2021-09-10] MEDS: ALBUTEROL/IPRATROPIUM 3 ML NEB RESP TX SCH ×3 (07:00→19:35)
[2021-09-10] MEDS ORDERED: INFLUENZA VIRUS VACCINE 0.5 ML SYRINGE IM ONE (07:40)
[2021-09-10] MEDS ORDERED: methylPREDNISolone SOD SUC 40 MG/1 ML VIAL IV SCH (09:00)
[2021-09-10] MEDS: FAMOTIDINE 20 MG TABLET PO SCH ×2 (09:03→21:44)
[2021-09-10] MEDS: PANTOPRAZOLE 40 MG TABLET PO SCH (09:03)
[2021-09-10] MEDS: INSULIN LISPRO 100 UNIT/ML SUBCUT SCH ×4 (09:03→21:45)
[2021-09-10] MEDS: ENOXAPARIN 40 MG/0.4 ML SYRINGE SUBCUT SCH (09:04)
[2021-09-10] MEDS: KETOCONAZOLE 2% CREAM 30 GM TUBE TOP SCH ×2 (11:06→21:46)
[2021-09-10] MEDS ORDERED: FUROSEMIDE 40 MG/4 ML VIAL IV SCH (14:30)
[2021-09-10] MEDS: LEVOFLOXACIN INJ 750 MG/150 ML PREMIX IV SCH (21:40)
[2021-09-11] MEDS: ALBUTEROL/IPRATROPIUM 3 ML NEB RESP TX SCH ×4 (00:30→20:30)
[2021-09-11] MEDS: diphenhydrAMINE CAP 25 MG CAPSULE PO PRN ×2 (03:36→23:00)
[2021-09-11 05:42] LABS: Basophils % 0.1 % (0.0-0.8); Eosinophils % 0.1 % (0.00-10.9); Hematocrit 29.2 VOL% (35.7-47.0); Hemoglobin 8.5 GM/DL (12.0-16.0); Immature Granulocytes % 0.7 %; Immature Granulocytes Absolute 0.07 #; Lymphocytes # 0.6 10*3/uL (1.4-4.0); Lymphocytes % 5.9 % (21.3-54.2); Mean Corpuscular HGB Conc 29.1 GM/DL (32-36); Mean Corpuscular Volume 85.9 FL (87-102); Mean Platelet Volume 9.8 FL (9.6-12.0); Monocytes % 8.1 % (1.7-12.7); Neutrophils % 85.1 % (38.7-73.9); Platelet Count 383 T/CUMM (130-400); Red Cell Distribution Width 17.2 % (9.3-17.3)
[2021-09-11 06:06] LABS: Calcium 8.9 MG/DL (8.5-10.1); Osmolality,Calculated 278.4 MOS/KG (273-304); Potassium 4.3 MMOL/L (3.5-5.1)
[2021-09-11] MEDS: ENOXAPARIN 40 MG/0.4 ML SYRINGE SUBCUT SCH (08:13)
[2021-09-11] MEDS: FAMOTIDINE 20 MG TABLET PO SCH ×2 (08:13→20:54)
[2021-09-11] MEDS: FOLIC ACID 1 MG TABLET PO SCH (08:13)
[2021-09-11] MEDS: FUROSEMIDE 20 MG TABLET PO SCH (08:13)
[2021-09-11] MEDS: INSULIN LISPRO 100 UNIT/ML SUBCUT SCH ×4 (08:13→20:51)
[2021-09-11] MEDS: LORATADINE 10 MG TABLET PO SCH (08:14)
[2021-09-11] MEDS: PANTOPRAZOLE 40 MG TABLET PO SCH (08:14)
[2021-09-11] MEDS: ASPIRIN EC 81 MG TABLET PO SCH (08:14)
[2021-09-11] MEDS: KETOCONAZOLE 2% CREAM 30 GM TUBE TOP SCH ×2 (08:14→20:57)
[2021-09-11] MEDS: METOPROLOL TARTRATE 50 MG TABLET PO SCH ×2 (08:14→20:54)
[2021-09-11] MEDS ORDERED: ALUM/MAG/SIMETH/LIDO VISC 1:1 30 ML BOTTLE PO ONE (08:52)
[2021-09-11] MEDS: BUDESONIDE/FORMOTEROL 160-4.5 INHALER 6 GM INH SCH ×2 (12:56→20:57)
[2021-09-11] MEDS ORDERED: FLUTICASONE 50 MCG NASAL SPRAY 16 GM BOTTLE BOTH NARES SCH (21:00)
[2021-09-11] MEDS: LEVOFLOXACIN INJ 750 MG/150 ML PREMIX IV SCH (21:00)
[2021-09-11] MEDS ORDERED: SIMVASTATIN 10 MG TABLET PO SCH (21:00)
[2021-09-12] MEDS: ALBUTEROL/IPRATROPIUM 3 ML NEB RESP TX SCH ×2 (00:59→07:10)
[2021-09-12 05:47] LABS: Basophils % 0.1 % (0.0-0.8); Eosinophils # 0.3 10*3/uL (0.0-0.87); Eosinophils % 3.9 % (0.00-10.9); Hematocrit 30.5 VOL% (35.7-47.0); Hemoglobin 8.9 GM/DL (12.0-16.0); Immature Granulocytes % 0.6 %; Immature Granulocytes Absolute 0.04 #; Lymphocytes # 1.1 10*3/uL (1.4-4.0); Lymphocytes % 15.9 % (21.3-54.2); Mean Corpuscular HGB Conc 29.2 GM/DL (32-36); Mean Corpuscular Volume 86.4 FL (87-102); Mean Platelet Volume 9.8 FL (9.6-12.0); Monocytes % 10.1 % (1.7-12.7); Neutrophils % 69.4 % (38.7-73.9); Platelet Count 378 T/CUMM (130-400); Red Blood Count 3.53 MC/CUMM (3.8-5.5); Red Cell Distribution Width 17.4 % (9.3-17.3); White Blood Count 7.1 T/CUMM (4-12)
[2021-09-12 06:26] LABS: Calcium 9.3 MG/DL (8.5-10.1); Potassium 4.4 MMOL/L (3.5-5.1)
[2021-09-12] MEDS: METOPROLOL TARTRATE 50 MG TABLET PO SCH (08:22)
[2021-09-12] MEDS: FUROSEMIDE 20 MG TABLET PO SCH (08:22)
[2021-09-12] MEDS: FAMOTIDINE 20 MG TABLET PO SCH (08:22)
[2021-09-12] MEDS: FOLIC ACID 1 MG TABLET PO SCH (08:22)
[2021-09-12] MEDS: ASPIRIN EC 81 MG TABLET PO SCH (08:22)
[2021-09-12] MEDS: LORATADINE 10 MG TABLET PO SCH (08:22)
[2021-09-12] MEDS: ENOXAPARIN 40 MG/0.4 ML SYRINGE SUBCUT SCH (08:22)
[2021-09-12] MEDS: PANTOPRAZOLE 40 MG TABLET PO SCH (08:22)
[2021-09-12] MEDS: INSULIN LISPRO 100 UNIT/ML SUBCUT SCH (08:23)
[2021-09-12] MEDS: KETOCONAZOLE 2% CREAM 30 GM TUBE TOP SCH (08:23)
[2021-09-12] MEDS: BUDESONIDE/FORMOTEROL 160-4.5 INHALER 6 GM INH SCH (08:23)
[2021-09-12 09:46] VITALS: BP 133/63
[2021-09-12] MEDS ORDERED: INFLUENZA VIRUS VACCINE 0.5 ML SYRINGE IM ONE (10:30)
== END 2021-09-12 10:59 | disposition home or self-care (01) | DRG 194 ==
LOC: N.ED 14:09 → N.EDINP 09-10 01:57 → N.3E 09-10 06:49
PROVIDERS: ADMIT Internal Medicine; ATTEND Internal Medicine

== ENCOUNTER 2022-01-14 12:45 | Inpatient (IN) ==
[2022-01-14] MEDS ORDERED: ASPIRIN 325 MG TABLET PO STA (13:14)
[2022-01-14 13:19] LABS: Basophils % 0.2 % (0.0-0.8); Eosinophils # 0.8 10*3/uL (0.0-0.87); Eosinophils % 14.1 % (0.00-10.9); Hematocrit 35.8 VOL% (35.7-47.0); Hemoglobin 10.8 GM/DL (12.0-16.0); Immature Granulocytes % 0.5 %; Immature Granulocytes Absolute 0.03 #; Lymphocytes # 0.5 10*3/uL (1.4-4.0); Lymphocytes % 8.6 % (21.3-54.2); Mean Corpuscular HGB Conc 30.2 GM/DL (32-36); Mean Corpuscular Volume 85.4 FL (87-102); Mean Platelet Volume 9.4 FL (9.6-12.0); Monocytes # 0.5 10*3/uL (0.11-0.8); Monocytes % 7.9 % (1.7-12.7); Neutrophils % 68.7 % (38.7-73.9); Platelet Count 309 T/CUMM (130-400); Red Blood Count 4.19 MC/CUMM (3.8-5.5); Red Cell Distribution Width 17.5 % (9.3-17.3); White Blood Count 5.9 T/CUMM (4-12)
[2022-01-14 13:34] LABS: Alanine Aminotransferase 18 U/L (13-56); Albumin 3.4 G/DL (3.4-5.0); Alkaline Phosphatase 81 U/L (45-117); Aspartate Amino Transferase 34 U/L (0-37); Bilirubin,Total < 0.39 MG/DL (0.20-1.00); Blood Urea Nitrogen 10 MG/DL (7-18); Carbon Dioxide 29 MMOL/L (21-32); Chloride 104 MMOL/L (98-107); Glucose 124 MG/DL (74-106); Osmolality,Calculated 276.5 MOS/KG (273-304); Potassium 3.9 MMOL/L (3.5-5.1); Sodium 139 MMOL/L (136-145); Total Protein 7.8 G/DL (6.4-8.2)
[2022-01-14 13:54] LABS: Eosinophils 15 % (0-10); Lymphocytes 13 % (20-55); Total Cells Counted 100
[2022-01-14 13:55] LABS: Platelet Estimate Adequate
[2022-01-14] MEDS ORDERED: MAGNESIUM SULF RIDER 4 GM/100 ML PREMIX IV PRN (16:15)
[2022-01-14] MEDS ORDERED: DOCUSATE SODIUM 100 MG CAPSULE PO PRN (16:15)
[2022-01-14] MEDS ORDERED: MAGNESIUM SULF RIDER 2 GM/50 ML PREMIX IV PRN (16:15)
[2022-01-14] MEDS ORDERED: BISACODYL 5 MG TABLET PO PRN (16:15)
[2022-01-14] MEDS ORDERED: ONDANSETRON 4 MG/2 ML VIAL IV PRN (16:15)
[2022-01-14] MEDS ORDERED: GLUCAGON 1 MG VIAL IM PRN (16:15)
[2022-01-14] MEDS ORDERED: hydrALAZINE 20 MG/1 ML VIAL IV PRN (16:15)
[2022-01-14] MEDS ORDERED: CALCIUM CARBONATE CHEW 500 MG TABLET PO PRN (16:15)
[2022-01-14] MEDS ORDERED: ZALEPLON 5 MG CAPSULE PO PRN (16:15)
[2022-01-14] MEDS ORDERED: POTASSIUM CHLORIDE 20 MEQ TABLET PO PRN (16:15)
[2022-01-14] MEDS ORDERED: ALUM/MAG/SIMETH/LIDO VISC 1:1 30 ML BOTTLE PO STA (16:46)
[2022-01-14] MEDS: INSULIN REGULAR 100 UNIT/ML SUBCUT SCH ×2 (16:49→23:07)
[2022-01-14] MEDS ORDERED: NITROGLYCERIN SL 0.4 MG TABLET SL STA (16:53)
[2022-01-14] MEDS ORDERED: ENOXAPARIN 40 MG/0.4 ML SYRINGE SUBCUT SCH (17:00)
[2022-01-14 20:06] LABS: CKMB % 1.42 %
[2022-01-14 20:10] LABS: High Sensitive Troponin I* 113.9 ng/L (0-54)
[2022-01-14] MEDS: NITROGLYCERIN SL 0.4 MG TABLET SL PRN ×2 (20:28→22:10)
[2022-01-14 20:37] LABS: CKMB % 1.25 %
[2022-01-14 20:39] LABS: High Sensitive Troponin I* 140.1 ng/L (0-54)
[2022-01-14] MEDS: POTASSIUM CHLORIDE 10 MEQ TABLET PO SCH (20:57)
[2022-01-14] MEDS ORDERED: SIMVASTATIN 10 MG TABLET PO SCH (21:00)
[2022-01-14] MEDS ORDERED: FUROSEMIDE 20 MG TABLET PO SCH (21:00)
[2022-01-14] MEDS ORDERED: ENOXAPARIN 60 MG/0.6 ML SYRINGE SUBCUT ONE (21:00)
[2022-01-14] MEDS: MORPHINE 2 MG/1 ML SYRINGE IV PRN (22:52)
[2022-01-14] MEDS: ALBUTEROL 2.5 MG/3 ML NEB RESP TX SCH (23:01)
[2022-01-15] MEDS: ALBUTEROL 2.5 MG/3 ML NEB RESP TX SCH ×2 (02:21→11:55)
[2022-01-15] MEDS: MORPHINE 2 MG/1 ML SYRINGE IV PRN (04:50)
[2022-01-15] MEDS: PANTOPRAZOLE 40 MG TABLET PO SCH (05:36)
[2022-01-15 05:43] LABS: Basophils % 0.2 % (0.0-0.8); Eosinophils # 0.7 10*3/uL (0.0-0.87); Eosinophils % 12.3 % (0.00-10.9); Hematocrit 33.8 VOL% (35.7-47.0); Hemoglobin 10.2 GM/DL (12.0-16.0); Immature Granulocytes % 0.7 %; Immature Granulocytes Absolute 0.04 #; Lymphocytes # 0.9 10*3/uL (1.4-4.0); Mean Corpuscular HGB Conc 30.2 GM/DL (32-36); Mean Corpuscular Volume 85.4 FL (87-102); Mean Platelet Volume 9.4 FL (9.6-12.0); Monocytes # 0.6 10*3/uL (0.11-0.8); Monocytes % 10.9 % (1.7-12.7); Neutrophils % 60.9 % (38.7-73.9); Platelet Count 315 T/CUMM (130-400); Red Blood Count 3.96 MC/CUMM (3.8-5.5); Red Cell Distribution Width 17.4 % (9.3-17.3); White Blood Count 5.9 T/CUMM (4-12)
[2022-01-15 05:53] LABS: PT Patient Result 10.9 SECS (10.5-12.0); Partial Thromboplastin Time 33.3 SECS (23.8-32.1)
[2022-01-15 06:11] LABS: Alanine Aminotransferase 18 U/L (13-56); Albumin 2.9 G/DL (3.4-5.0); Alkaline Phosphatase 72 U/L (45-117); Aspartate Amino Transferase 40 U/L (0-37); Band Neutrophils 1 % (0-10); Bilirubin,Total < 0.39 MG/DL (0.20-1.00); Blood Urea Nitrogen 8 MG/DL (7-18); Calcium 9.1 MG/DL (8.5-10.1); Carbon Dioxide 26 MMOL/L (21-32); Chloride 103 MMOL/L (98-107); Cholesterol 149 MG/DL (50-200); Eosinophils 8 % (0-10); Glucose 140 MG/DL (74-106); HDL Cholesterol 39 MG/DL (40-60); Lymphocytes 14 % (20-55); Potassium 3.7 MMOL/L (3.5-5.1); Risk Ratio 3.82; Sodium 136 MMOL/L (136-145); Total Cells Counted 100; Total Protein 7.8 G/DL (6.4-8.2); Triglycerides 166 MG/DL (2-150); VLDL Cholesterol 33.2 MG/DL
[2022-01-15 06:12] LABS: Platelet Estimate Normal
[2022-01-15] MEDS ORDERED: MORPHINE 2 MG/1 ML SYRINGE IV ONE (08:44)
[2022-01-15] MEDS ORDERED: ASPIRIN CHEW 81 MG TABLET PO SCH (09:00)
[2022-01-15] MEDS ORDERED: ENOXAPARIN 100 MG/ML SYRINGE SUBCUT ONE (09:00)
[2022-01-15] MEDS ORDERED: SACUBITRIL/VALSARTAN 49-51 MG TABLET PO SCH (09:00)
[2022-01-15] MEDS ORDERED: METOPROLOL TARTRATE 100 MG TABLET PO SCH (09:00)
[2022-01-15] MEDS ORDERED: FUROSEMIDE 40 MG TABLET PO SCH (09:00)
[2022-01-15] MEDS ORDERED: MAGNESIUM SULF RIDER 2 GM/50 ML PREMIX IV PRN (09:17)
[2022-01-15] MEDS ORDERED: POTASSIUM CHLORIDE RIDER 10 MEQ/100 ML PREMIX IV PRN (09:17)
[2022-01-15] MEDS ORDERED: diphenhydrAMINE CAP 50 MG CAPSULE PO ONE (09:19)
[2022-01-15] MEDS ORDERED: DIAZEPAM 5 MG TABLET PO ONE (09:19)
[2022-01-15] MEDS ORDERED: TIROFIBAN IV ONE (09:28)
[2022-01-15] MEDS: NITROGLYCERIN 2% OINT 1 INCH/GM PACK TOP SCH ×3 (09:31→21:45)
[2022-01-15] MEDS: INSULIN REGULAR 100 UNIT/ML SUBCUT SCH ×4 (09:32→22:08)
[2022-01-15] MEDS: ROSUVASTATIN 20 MG TABLET PO SCH (09:34)
[2022-01-15] MEDS: POTASSIUM CHLORIDE 10 MEQ TABLET PO SCH ×2 (09:35→22:12)
[2022-01-15] MEDS: LORATADINE 10 MG TABLET PO SCH (09:35)
[2022-01-15] MEDS: ASPIRIN EC 81 MG TABLET PO SCH (09:45)
[2022-01-15] MEDS: PRASUGREL 10 MG TABLET PO SCH (09:55)
[2022-01-15] MEDS ORDERED: TIROFIBAN 5,000 MCG/100 ML PREMIX IV ONE (09:59)
[2022-01-15] MEDS ORDERED: MIDAZOLAM 2 MG/2 ML VIAL ONE ×3 (10:00→18:26)
[2022-01-15] MEDS ORDERED: HYDROmorphone 1 MG/1 ML SYRINGE ONE (10:00)
[2022-01-15] MEDS ORDERED: FUROSEMIDE 40 MG/4 ML VIAL ONE ×3 (10:55→12:10)
[2022-01-15] MEDS ORDERED: NITROGLYCERIN DRIP 50 MG/250 ML BOTTLE IV ONE (10:57)
[2022-01-15] MEDS ORDERED: ETOMIDATE 20 MG/10 ML VIAL IV ONE ×2 (11:07→11:15)
[2022-01-15] MEDS ORDERED: fentaNYL 100 MCG/2 ML VIAL ONE (11:09)
[2022-01-15] MEDS ORDERED: ROCURONIUM 100 MG/10 ML VIAL IV ONE ×2 (11:10→11:15)
[2022-01-15] MEDS ORDERED: VECURONIUM 10 MG VIAL IV ONE (11:25)
[2022-01-15] MEDS ORDERED: SPIRONOLACTONE 25 MG TABLET PO ONE (11:57)
[2022-01-15] MEDS ORDERED: SACUBITRIL/VALSARTAN 49-51 MG TABLET PO ONE (12:30)
[2022-01-15] MEDS ORDERED: HEPARIN/NACL 0.9% 2 UNITS/ML 1,000 UNIT/500 ML BAG IV ONE (12:41)
[2022-01-15 13:11] LABS: ABG Base Excess -4.1 MMOL/L (-2.5-2.5); ABG HCO3 20.9 MMOL/L (20-26); ABG Oxygen Saturation 91.2 % (95-100); ABG PCO2 60.5 MM HG (35-48); ABG PH 7.222 (7.35-7.45); ABG PO2 81.9 MM HG (80-95); ABG TCO2 22.6 MMOL/L (23-27)
[2022-01-15 13:32] LABS: CKMB % 7.15 %; Calcium 8.8 MG/DL (8.5-10.1); Osmolality,Calculated 275.5 MOS/KG (273-304); Potassium 3.2 MMOL/L (3.5-5.1)
[2022-01-15 13:35] LABS: High Sensitive Troponin I* 5529.5 ng/L (0-54)
[2022-01-15 13:38] LABS: Basophils # 0.1 10*3/uL (0.0-0.2); Basophils % 0.3 % (0.0-0.8); Eosinophils # 0.8 10*3/uL (0.0-0.87); Eosinophils % 4.7 % (0.00-10.9); Immature Granulocytes % 1.3 %; Immature Granulocytes Absolute 0.23 #; Lymphocytes # 1.8 10*3/uL (1.4-4.0); Lymphocytes % 10.6 % (21.3-54.2); Mean Corpuscular HGB Conc 29.3 GM/DL (32-36); Mean Corpuscular Volume 87.9 FL (87-102); Mean Platelet Volume 9.2 FL (9.6-12.0); Monocytes # 1.2 10*3/uL (0.11-0.8); Monocytes % 6.8 % (1.7-12.7); Neutrophils % 76.3 % (38.7-73.9); Red Cell Distribution Width 17.6 % (9.3-17.3)
[2022-01-15] MEDS: MIDAZOLAM 100 MG in SODIUM CHLORIDE 0.9% 80 ML IV PRN (13:52)
[2022-01-15 13:55] LABS: Hemoglobin 12.3 GM/DL (12.0-16.0); Platelet Count 435 T/CUMM (130-400); Red Blood Count 4.78 MC/CUMM (3.8-5.5); White Blood Count 17.3 T/CUMM (4-12)
[2022-01-15] MEDS: PHENYLEPHRINE DRIP 40 MG/250 ML PREMIX IV PRN ×2 (14:00→22:50)
[2022-01-15] MEDS ORDERED: DOBUTamine 500 MG/250 ML PREMIX IV ONE (14:42)
[2022-01-15] MEDS ORDERED: LORazepam 2 MG/1 ML VIAL IV ONE (14:43)
[2022-01-15] MEDS ORDERED: DOBUTamine 500 MG/250 ML PREMIX IV PRN (14:44)
[2022-01-15] MEDS ORDERED: ALPRAZolam 0.25 MG TABLET NG ONE (14:48)
[2022-01-15] MEDS: LEVALBUTEROL 1.25 MG/3 ML NEB RESP TX SCH ×2 (14:55→19:07)
[2022-01-15] MEDS ORDERED: SODIUM BICARBONATE 50 MEQ/50 ML VIAL IV ONE ×3 (15:00→16:00)
[2022-01-15 15:18] LABS: ABG Base Excess 1.9 MMOL/L (-2.5-2.5); ABG HCO3 26.2 MMOL/L (20-26); ABG Oxygen Saturation 99.6 % (95-100); ABG PCO2 48.9 MM HG (35-48); ABG PH 7.366 (7.35-7.45); ABG TCO2 25.2 MMOL/L (23-27)
[2022-01-15] MEDS ORDERED: DOPamine 800 MG/250 ML PREMIX IV ONE (15:18)
[2022-01-15] MEDS: DOPamine 800 MG/250 ML PREMIX IV PRN (15:34)
[2022-01-15] MEDS ORDERED: POTASSIUM CHLORIDE RIDER 20 MEQ/100 ML PREMIX IV ONE (16:00)
[2022-01-15] MEDS ORDERED: ENOXAPARIN 30 MG/0.3 ML SYRINGE ONE (17:27)
[2022-01-15] MEDS ORDERED: HEPARIN/NACL 0.9% 2 UNITS/ML 1,000 UNIT/500 ML BAG IV SCH (18:30)
[2022-01-15 20:11] LABS: ABG Base Excess 2.2 MMOL/L (-2.5-2.5); ABG HCO3 26.4 MMOL/L (20-26); ABG Oxygen Saturation 99.7 % (95-100); ABG PCO2 44.2 MM HG (35-48); ABG PH 7.401 (7.35-7.45); ABG TCO2 24.5 MMOL/L (23-27)
[2022-01-15] MEDS: DEXTROSE 5% IV SCH (20:22)
[2022-01-15] MEDS: SODIUM BICARB IV SCH (20:22)
[2022-01-15 20:31] LABS: Albumin 2.9 G/DL (3.4-5.0); Basophils % 0.1 % (0.0-0.8); Bilirubin,Total 0.4 MG/DL (0.20-1.00); CKMB % 5.99 %; Calcium 8.4 MG/DL (8.5-10.1); Eosinophils # 0.1 10*3/uL (0.0-0.87); Eosinophils % 0.4 % (0.00-10.9); Hematocrit 36.9 VOL% (35.7-47.0); Immature Granulocytes % 0.9 %; Immature Granulocytes Absolute 0.17 #; Lymphocytes # 0.9 10*3/uL (1.4-4.0); Lymphocytes % 4.3 % (21.3-54.2); Mean Corpuscular HGB Conc 29.8 GM/DL (32-36); Mean Corpuscular Volume 86.2 FL (87-102); Mean Platelet Volume 9.3 FL (9.6-12.0); Monocytes # 1.7 10*3/uL (0.11-0.8); Monocytes % 8.6 % (1.7-12.7); Neutrophils % 85.7 % (38.7-73.9); Osmolality,Calculated 281.8 MOS/KG (273-304); Platelet Count 379 T/CUMM (130-400); Potassium 4.1 MMOL/L (3.5-5.1); Red Blood Count 4.28 MC/CUMM (3.8-5.5); Red Cell Distribution Width 17.4 % (9.3-17.3); Total Protein 7.8 G/DL (6.4-8.2); White Blood Count 19.6 T/CUMM (4-12)
[2022-01-15 20:33] LABS: High Sensitive Troponin I* 17289.3 ng/L (0-54)
[2022-01-15 20:38] LABS: Band Neutrophils 9 % (0-10); Lymphocytes 2 % (20-55); Total Cells Counted 100
[2022-01-15 20:39] LABS: Anisocytosis 1+; Hypochromia 1+; Macrocytosis Slight; Microcytosis 1+; Platelet Estimate Normal; Polychromasia 1+
[2022-01-15] MEDS: FUROSEMIDE 40 MG/4 ML VIAL IV SCH (21:51)
[2022-01-15] MEDS: ENOXAPARIN 100 MG/ML SYRINGE SUBCUT SCH (22:09)
[2022-01-15] MEDS: FLUTICASONE 50 MCG NASAL SPRAY 16 GM BOTTLE BOTH NARES SCH (22:13)
[2022-01-16] MEDS: LEVALBUTEROL 1.25 MG/3 ML NEB RESP TX SCH ×4 (00:05→19:18)
[2022-01-16] MEDS: MORPHINE 2 MG/1 ML SYRINGE IV PRN ×2 (00:58→12:59)
[2022-01-16] MEDS: INSULIN REGULAR 100 UNIT/ML SUBCUT SCH ×6 (01:04→21:00)
[2022-01-16 01:38] LABS: Basophils % 0.1 % (0.0-0.8); Eosinophils % 0.1 % (0.00-10.9); Hematocrit 33.9 VOL% (35.7-47.0); Hemoglobin 10.4 GM/DL (12.0-16.0); Immature Granulocytes % 0.7 %; Immature Granulocytes Absolute 0.14 #; Lymphocytes # 0.9 10*3/uL (1.4-4.0); Lymphocytes % 4.4 % (21.3-54.2); Mean Corpuscular HGB Conc 30.7 GM/DL (32-36); Mean Corpuscular Volume 85.8 FL (87-102); Monocytes # 2.3 10*3/uL (0.11-0.8); Monocytes % 11.3 % (1.7-12.7); Neutrophils % 83.4 % (38.7-73.9); Platelet Count 333 T/CUMM (130-400); Red Blood Count 3.95 MC/CUMM (3.8-5.5); Red Cell Distribution Width 17.4 % (9.3-17.3); White Blood Count 20.4 T/CUMM (4-12)
[2022-01-16 01:44] LABS: ABG Base Excess 1.7 MMOL/L (-2.5-2.5); ABG HCO3 25.9 MMOL/L (20-26); ABG Oxygen Saturation 99.5 % (95-100); ABG PH 7.401 (7.35-7.45); ABG TCO2 24.1 MMOL/L (23-27)
[2022-01-16 01:48] LABS: Calcium 8.8 MG/DL (8.5-10.1); Osmolality,Calculated 284.7 MOS/KG (273-304)
[2022-01-16] MEDS ORDERED: SODIUM CHLORIDE 0.9% 250 ML IV ONE ×2 (02:06→14:52)
[2022-01-16 02:10] LABS: Band Neutrophils 3 % (0-10); Lymphocytes 3 % (20-55); Total Cells Counted 100
[2022-01-16 02:11] LABS: Hypochromia 1+; Platelet Estimate Normal; Polychromasia Few
[2022-01-16] MEDS ORDERED: IBUPROFEN 400 MG TABLET PO ONE (02:12)
[2022-01-16] MEDS ORDERED: SODIUM CHLORIDE 0.9% 500 ML IV ONE (03:58)
[2022-01-16] MEDS: NITROGLYCERIN 2% OINT 1 INCH/GM PACK TOP SCH ×2 (04:28→08:40)
[2022-01-16] MEDS: PANTOPRAZOLE 40 MG TABLET PO SCH (06:56)
[2022-01-16 07:31] LABS: Amorphous Crystals,Urine Few /HPF (Few); Bacteria,Urine Occasional /HPF (Few); Hyaline Casts,Urine 6 /LPF (0-3); Mucus,Urine Occasional /LPF (Occasional); RBC,Urine 79 /HPF (0-4); Squamous Epithelial Cell,Urine Occasional /HPF (0-10)
[2022-01-16 07:32] LABS: Glucose,Urine (UA) Negative (Negative); Ketones,Urine Negative (Negative); Nitrite,Urine Negative (Negative); Protein,Urine >=300 mg/dL (Negative); Urine Appearance Slightly Cloudy (Clear); Urine Color Yellow (Yellow)
[2022-01-16 07:33] LABS: Bilirubin,Urine Small mg/dL (Negative); Blood, Urine Large mg/dL (Negative); Urine Urobilinogen 0.2 eU/dL (<2.0)
[2022-01-16] MEDS: FUROSEMIDE 40 MG/4 ML VIAL IV SCH (08:55)
[2022-01-16] MEDS: POTASSIUM CHLORIDE 10 MEQ TABLET PO SCH ×2 (09:09→21:01)
[2022-01-16] MEDS: ROSUVASTATIN 20 MG TABLET PO SCH (09:33)
[2022-01-16] MEDS: ASPIRIN EC 81 MG TABLET PO SCH (09:33)
[2022-01-16] MEDS: LORATADINE 10 MG TABLET PO SCH (09:33)
[2022-01-16] MEDS: ENOXAPARIN 100 MG/ML SYRINGE SUBCUT SCH ×2 (09:34→21:01)
[2022-01-16] MEDS: PRASUGREL 10 MG TABLET PO SCH (09:34)
[2022-01-16] MEDS ORDERED: SODIUM CHLORIDE 0.9% 1,000 ML IV SCH (10:30)
[2022-01-16] MEDS ORDERED: HYDROmorphone 1 MG/1 ML SYRINGE IV PRN (11:03)
[2022-01-16] MEDS ORDERED: ALPRAZolam 0.25 MG TABLET PO PRN (11:03)
[2022-01-16] MEDS: PHENYLEPHRINE DRIP 40 MG/250 ML PREMIX IV PRN (11:20)
[2022-01-16] MEDS: HYDROCORTISONE 100 MG VIAL IV SCH ×2 (11:26→18:56)
[2022-01-16] MEDS: LEVOFLOXACIN INJ 500 MG/100 ML PREMIX IV SCH (11:51)
[2022-01-16 12:44] LABS: Calcium 8.6 MG/DL (8.5-10.1); Osmolality,Calculated 286.7 MOS/KG (273-304); Potassium 3.5 MMOL/L (3.5-5.1)
[2022-01-16] MEDS: SODIUM CHLORIDE 0.9% 1,000 ML IV SCH (19:15)
[2022-01-16] MEDS: SODIUM BICARB IV SCH (21:55)
[2022-01-16] MEDS: DEXTROSE 5% IV SCH (21:55)
[2022-01-16] MEDS: FLUTICASONE 50 MCG NASAL SPRAY 16 GM BOTTLE BOTH NARES SCH (21:56)
[2022-01-17] MEDS: MIDAZOLAM 100 MG in SODIUM CHLORIDE 0.9% 80 ML IV PRN
[2022-01-17] MEDS: MORPHINE 2 MG/1 ML SYRINGE IV PRN (00:14)
[2022-01-17] MEDS: PHENYLEPHRINE DRIP 40 MG/250 ML PREMIX IV PRN ×2 (00:15→16:02)
[2022-01-17] MEDS: SODIUM CHLORIDE 0.9% 1,000 ML IV SCH ×6 (00:33→22:06)
[2022-01-17] MEDS: INSULIN REGULAR 100 UNIT/ML SUBCUT SCH ×7 (00:56→23:51)
[2022-01-17] MEDS: LEVALBUTEROL 1.25 MG/3 ML NEB RESP TX SCH ×4 (00:59→18:59)
[2022-01-17] MEDS ORDERED: SODIUM CHLORIDE 0.9% 250 ML IV ONE ×3 (01:46→17:03)
[2022-01-17] MEDS: DOPamine 800 MG/250 ML PREMIX IV PRN (02:08)
[2022-01-17 03:56] LABS: ABG Base Excess 0.4 MMOL/L (-2.5-2.5); ABG HCO3 24.8 MMOL/L (20-26); ABG PCO2 41.6 MM HG (35-48); ABG PH 7.393 (7.35-7.45); ABG TCO2 23.4 MMOL/L (23-27)
[2022-01-17 04:01] LABS: Basophils % 0.2 % (0.0-0.8); Eosinophils # 0.1 10*3/uL (0.0-0.87); Eosinophils % 0.5 % (0.00-10.9); Hematocrit 26.2 VOL% (35.7-47.0); Immature Granulocytes % 0.6 %; Immature Granulocytes Absolute 0.08 #; Lymphocytes % 7.3 % (21.3-54.2); Mean Corpuscular HGB Conc 29.4 GM/DL (32-36); Mean Corpuscular Volume 86.5 FL (87-102); Monocytes # 1.5 10*3/uL (0.11-0.8); Monocytes % 11.4 % (1.7-12.7); Red Cell Distribution Width 17.7 % (9.3-17.3)
[2022-01-17 04:02] LABS: Hemoglobin 7.7 GM/DL (12.0-16.0); Platelet Count 218 T/CUMM (130-400); Red Blood Count 3.03 MC/CUMM (3.8-5.5); White Blood Count 13.2 T/CUMM (4-12)
[2022-01-17 04:23] LABS: Alanine Aminotransferase 17 U/L (13-56); Albumin 2.2 G/DL (3.4-5.0); Alkaline Phosphatase 54 U/L (45-117); Aspartate Amino Transferase 64 U/L (0-37); Bilirubin,Total < 0.39 MG/DL (0.20-1.00); Blood Urea Nitrogen 34 MG/DL (7-18); Calcium 8.2 MG/DL (8.5-10.1); Carbon Dioxide 26 MMOL/L (21-32); Chloride 108 MMOL/L (98-107); Glucose 187 MG/DL (74-106); Osmolality,Calculated 291.4 MOS/KG (273-304); Potassium 3.8 MMOL/L (3.5-5.1); Sodium 140 MMOL/L (136-145); Total Protein 6.6 G/DL (6.4-8.2)
[2022-01-17] MEDS: HYDROCORTISONE 100 MG VIAL IV SCH ×3 (05:13→18:35)
[2022-01-17] MEDS: PANTOPRAZOLE 40 MG TABLET PO SCH (06:03)
[2022-01-17] MEDS: LEVOFLOXACIN INJ 500 MG/100 ML PREMIX IV SCH (09:13)
[2022-01-17] MEDS: ENOXAPARIN 100 MG/ML SYRINGE SUBCUT SCH ×2 (09:30→20:34)
[2022-01-17] MEDS ORDERED: SODIUM CHLORIDE 0.9% 1,000 ML IV PRN (09:33)
[2022-01-17] MEDS: LORATADINE 10 MG TABLET PO SCH (10:21)
[2022-01-17] MEDS: ASPIRIN EC 81 MG TABLET PO SCH (10:21)
[2022-01-17] MEDS: PRASUGREL 10 MG TABLET PO SCH (10:22)
[2022-01-17] MEDS: POTASSIUM CHLORIDE 10 MEQ TABLET PO SCH ×2 (10:22→20:33)
[2022-01-17] MEDS: ROSUVASTATIN 20 MG TABLET PO SCH (10:22)
[2022-01-17] MEDS: SODIUM BICARB INJ 100 MEQ in DEXTROSE 5% NACL 0.22% 1,000 ML IV SCH ×2 (12:00→23:29)
[2022-01-17] MEDS: SODIUM BICARB IV SCH (13:00)
[2022-01-17] MEDS: DEXTROSE 5% IV SCH (13:00)
[2022-01-17 17:54] LABS: Basophils % 0.1 % (0.0-0.8); Eosinophils % 0.2 % (0.00-10.9); Hematocrit 28.7 VOL% (35.7-47.0); Hemoglobin 8.8 GM/DL (12.0-16.0); Immature Granulocytes % 0.8 %; Immature Granulocytes Absolute 0.09 #; Lymphocytes # 0.6 10*3/uL (1.4-4.0); Lymphocytes % 5.5 % (21.3-54.2); Mean Corpuscular HGB Conc 30.7 GM/DL (32-36); Mean Corpuscular Volume 86.7 FL (87-102); Mean Platelet Volume 8.9 FL (9.6-12.0); Monocytes # 0.8 10*3/uL (0.11-0.8); Monocytes % 7.5 % (1.7-12.7); Neutrophils % 85.9 % (38.7-73.9); Platelet Count 192 T/CUMM (130-400); Red Blood Count 3.31 MC/CUMM (3.8-5.5); Red Cell Distribution Width 17.2 % (9.3-17.3)
[2022-01-17] MEDS ORDERED: SODIUM CHLORIDE 0.9% 250 ML IV PRN (18:20)
[2022-01-17] MEDS: SODIUM CHLORIDE 0.9% 250 ML IV PRN ×2 (18:20→18:40)
[2022-01-17] MEDS: FLUTICASONE 50 MCG NASAL SPRAY 16 GM BOTTLE BOTH NARES SCH (20:33)
[2022-01-18] MEDS: LEVALBUTEROL 1.25 MG/3 ML NEB RESP TX SCH ×4 (00:10→19:25)
[2022-01-18] MEDS: SODIUM CHLORIDE 0.9% 250 ML IV PRN ×7 (00:31→23:45)
[2022-01-18] MEDS: HYDROCORTISONE 100 MG VIAL IV SCH ×3 (02:09→19:35)
[2022-01-18] MEDS: INSULIN REGULAR 100 UNIT/ML SUBCUT SCH ×5 (04:18→19:55)
[2022-01-18 04:56] LABS: ABG Base Excess 1.6 MMOL/L (-2.5-2.5); ABG HCO3 25.9 MMOL/L (20-26); ABG Oxygen Saturation 99.1 % (95-100); ABG PCO2 46.2 MM HG (35-48); ABG PH 7.377 (7.35-7.45); ABG TCO2 25.1 MMOL/L (23-27)
[2022-01-18 05:05] LABS: Eosinophils # 0.1 10*3/uL (0.0-0.87); Eosinophils % 0.5 % (0.00-10.9); Hematocrit 28.5 VOL% (35.7-47.0); Hemoglobin 8.6 GM/DL (12.0-16.0); Immature Granulocytes % 1.1 %; Lymphocytes # 0.6 10*3/uL (1.4-4.0); Lymphocytes % 6.9 % (21.3-54.2); Mean Corpuscular HGB Conc 30.2 GM/DL (32-36); Mean Corpuscular Volume 86.1 FL (87-102); Mean Platelet Volume 8.8 FL (9.6-12.0); Monocytes # 0.7 10*3/uL (0.11-0.8); Monocytes % 7.1 % (1.7-12.7); Neutrophils % 84.4 % (38.7-73.9); Platelet Count 177 T/CUMM (130-400); Red Blood Count 3.31 MC/CUMM (3.8-5.5); Red Cell Distribution Width 17.2 % (9.3-17.3); White Blood Count 9.2 T/CUMM (4-12)
[2022-01-18 05:11] LABS: Calcium 8.6 MG/DL (8.5-10.1); Osmolality,Calculated 294.4 MOS/KG (273-304)
[2022-01-18] MEDS: PANTOPRAZOLE 40 MG TABLET PO SCH (05:37)
[2022-01-18] MEDS: SODIUM CHLORIDE 0.9% 1,000 ML IV SCH ×3 (07:31→19:18)
[2022-01-18] MEDS: LEVOFLOXACIN INJ 500 MG/100 ML PREMIX IV SCH (08:39)
[2022-01-18] MEDS: MIDAZOLAM 100 MG in SODIUM CHLORIDE 0.9% 80 ML IV PRN (08:49)
[2022-01-18] MEDS: ENOXAPARIN 100 MG/ML SYRINGE SUBCUT SCH (09:56)
[2022-01-18] MEDS: LORATADINE 10 MG TABLET PO SCH ×2 (10:08→11:24)
[2022-01-18] MEDS: ASPIRIN EC 81 MG TABLET PO SCH ×2 (10:08→11:23)
[2022-01-18] MEDS: POTASSIUM CHLORIDE 10 MEQ TABLET PO SCH ×3 (10:09→21:14)
[2022-01-18] MEDS: PRASUGREL 10 MG TABLET PO SCH ×2 (10:09→11:23)
[2022-01-18] MEDS: ROSUVASTATIN 20 MG TABLET PO SCH ×2 (10:09→11:24)
[2022-01-18] MEDS: SODIUM BICARB INJ 100 MEQ in DEXTROSE 5% NACL 0.22% 1,000 ML IV SCH (11:02)
[2022-01-18] MEDS ORDERED: MIDAZOLAM 2 MG/2 ML VIAL ONE (13:53)
[2022-01-18] MEDS ORDERED: NITROGLYCERIN DRIP 50 MG/250 ML BOTTLE IV ONE (17:08)
[2022-01-18] MEDS: DEXTROSE 5% IV SCH (19:10)
[2022-01-18] MEDS: SODIUM BICARB IV SCH (19:10)
[2022-01-18 19:19] LABS: CKMB % 2.57 %
[2022-01-18 19:23] LABS: High Sensitive Troponin I* 2954.7 ng/L (0-54)
[2022-01-18] MEDS: DOPamine 800 MG/250 ML PREMIX IV PRN (19:57)
[2022-01-18] MEDS: FLUTICASONE 50 MCG NASAL SPRAY 16 GM BOTTLE BOTH NARES SCH (20:11)
[2022-01-18] MEDS ORDERED: ENOXAPARIN 80 MG/0.8 ML SYRINGE SUBCUT SCH (21:30)
[2022-01-19] MEDS: LEVALBUTEROL 1.25 MG/3 ML NEB RESP TX SCH ×4 (00:50→19:15)
[2022-01-19] MEDS: INSULIN REGULAR 100 UNIT/ML SUBCUT SCH ×6 (01:17→20:37)
[2022-01-19] MEDS: MIDAZOLAM 100 MG in SODIUM CHLORIDE 0.9% 80 ML IV PRN ×3 (01:35→23:33)
[2022-01-19] MEDS: MORPHINE 2 MG/1 ML SYRINGE IV PRN (02:35)
[2022-01-19] MEDS: HYDROCORTISONE 100 MG VIAL IV SCH ×3 (03:21→18:30)
[2022-01-19] MEDS: SODIUM CHLORIDE 0.9% 1,000 ML IV SCH ×3 (04:20→21:45)
[2022-01-19 04:24] LABS: ABG Base Excess 2.6 MMOL/L (-2.5-2.5); ABG HCO3 26.8 MMOL/L (20-26); ABG Oxygen Saturation 99.2 % (95-100); ABG PCO2 38.4 MM HG (35-48); ABG TCO2 24.6 MMOL/L (23-27)
[2022-01-19 04:25] LABS: Basophils % 0.3 % (0.0-0.8); Eosinophils % 0.5 % (0.00-10.9); Hematocrit 28.7 VOL% (35.7-47.0); Hemoglobin 8.7 GM/DL (12.0-16.0); Immature Granulocytes Absolute 0.07 #; Lymphocytes # 0.8 10*3/uL (1.4-4.0); Lymphocytes % 10.8 % (21.3-54.2); Mean Corpuscular HGB Conc 30.3 GM/DL (32-36); Mean Corpuscular Volume 85.9 FL (87-102); Mean Platelet Volume 9.4 FL (9.6-12.0); Monocytes # 0.7 10*3/uL (0.11-0.8); Monocytes % 9.3 % (1.7-12.7); Neutrophils % 78.1 % (38.7-73.9); Platelet Count 175 T/CUMM (130-400); Red Blood Count 3.34 MC/CUMM (3.8-5.5); Red Cell Distribution Width 17.2 % (9.3-17.3); White Blood Count 7.3 T/CUMM (4-12)
[2022-01-19 04:41] LABS: Calcium 8.1 MG/DL (8.5-10.1); Osmolality,Calculated 296.7 MOS/KG (273-304)
[2022-01-19 04:42] LABS: CKMB % 6.7 %
[2022-01-19 04:49] LABS: High Sensitive Troponin I* 4082.7 ng/L (0-54)
[2022-01-19] MEDS: PANTOPRAZOLE 40 MG TABLET PO SCH (05:50)
[2022-01-19] MEDS: LEVOFLOXACIN INJ 500 MG/100 ML PREMIX IV SCH (12:15)
[2022-01-19] MEDS: LORATADINE 10 MG TABLET PO SCH (12:45)
[2022-01-19] MEDS: ASPIRIN EC 81 MG TABLET PO SCH (12:45)
[2022-01-19] MEDS: ROSUVASTATIN 20 MG TABLET PO SCH (12:46)
[2022-01-19] MEDS: POTASSIUM CHLORIDE 10 MEQ TABLET PO SCH ×2 (12:46→20:37)
[2022-01-19] MEDS: PRASUGREL 10 MG TABLET PO SCH (12:46)
[2022-01-19] MEDS: SODIUM CHLORIDE 0.9% 250 ML IV PRN ×2 (17:10→17:25)
[2022-01-19] MEDS ORDERED: ENOXAPARIN 100 MG/ML SYRINGE SUBCUT ONE (17:10)
[2022-01-19] MEDS: FLUTICASONE 50 MCG NASAL SPRAY 16 GM BOTTLE BOTH NARES SCH (20:44)
[2022-01-19] MEDS: DEXTROSE 5% IV SCH (21:09)
[2022-01-19] MEDS: SODIUM BICARB IV SCH (21:09)
[2022-01-20] MEDS: INSULIN REGULAR 100 UNIT/ML SUBCUT SCH ×6 (00:10→20:44)
[2022-01-20] MEDS: LEVALBUTEROL 1.25 MG/3 ML NEB RESP TX SCH ×4 (00:42→19:15)
[2022-01-20 03:51] LABS: ABG Base Excess 2.1 MMOL/L (-2.5-2.5); ABG HCO3 26.3 MMOL/L (20-26); ABG Oxygen Saturation 99.6 % (95-100); ABG PCO2 35.6 MM HG (35-48); ABG PH 7.467 (7.35-7.45); ABG TCO2 23.8 MMOL/L (23-27)
[2022-01-20 03:53] LABS: Basophils % 0.3 % (0.0-0.8); Eosinophils # 0.1 10*3/uL (0.0-0.87); Eosinophils % 0.8 % (0.00-10.9); Hematocrit 25.6 VOL% (35.7-47.0); Hemoglobin 7.6 GM/DL (12.0-16.0); Immature Granulocytes % 1.7 %; Immature Granulocytes Absolute 0.11 #; Mean Corpuscular HGB Conc 29.7 GM/DL (32-36); Mean Corpuscular Volume 87.1 FL (87-102); Mean Platelet Volume 9.3 FL (9.6-12.0); Monocytes # 0.9 10*3/uL (0.11-0.8); Monocytes % 14.5 % (1.7-12.7); Neutrophils % 66.7 % (38.7-73.9); Platelet Count 150 T/CUMM (130-400); Red Blood Count 2.94 MC/CUMM (3.8-5.5); Red Cell Distribution Width 17.4 % (9.3-17.3); White Blood Count 6.5 T/CUMM (4-12)
[2022-01-20] MEDS: HYDROCORTISONE 100 MG VIAL IV SCH ×3 (04:04→20:15)
[2022-01-20 04:08] LABS: Calcium 8.3 MG/DL (8.5-10.1); Osmolality,Calculated 295.7 MOS/KG (273-304); Potassium 3.7 MMOL/L (3.5-5.1)
[2022-01-20] MEDS: PANTOPRAZOLE 40 MG TABLET PO SCH (06:09)
[2022-01-20] MEDS: SODIUM CHLORIDE 0.9% 1,000 ML IV SCH ×3 (06:50→22:44)
[2022-01-20] MEDS: MIDAZOLAM 100 MG in SODIUM CHLORIDE 0.9% 80 ML IV PRN ×2 (11:00→13:36)
[2022-01-20] MEDS: DEXTROSE 10% 250 ML BAG IV PRN ×2 (11:35→12:42)
[2022-01-20] MEDS: LEVOFLOXACIN INJ 500 MG/100 ML PREMIX IV SCH (11:39)
[2022-01-20] MEDS: LORATADINE 10 MG TABLET PO SCH (11:42)
[2022-01-20] MEDS: PRASUGREL 10 MG TABLET PO SCH (11:42)
[2022-01-20] MEDS: ROSUVASTATIN 20 MG TABLET PO SCH (11:42)
[2022-01-20] MEDS: ASPIRIN EC 81 MG TABLET PO SCH (11:42)
[2022-01-20] MEDS: POTASSIUM CHLORIDE 10 MEQ TABLET PO SCH ×2 (11:42→20:44)
[2022-01-20] MEDS ORDERED: METOCLOPRAMIDE 10 MG/2 ML VIAL IV ONE (12:01)
[2022-01-20] MEDS: SODIUM BICARB IV SCH (19:02)
[2022-01-20] MEDS: DEXTROSE 5% IV SCH (19:02)
[2022-01-20] MEDS: METOCLOPRAMIDE 10 MG/2 ML VIAL IV SCH (20:44)
[2022-01-20] MEDS ORDERED: SODIUM CHLORIDE 0.9% 250 ML IV ONE (21:25)
[2022-01-20 23:23] LABS: Hematocrit 22.4 VOL% (35.7-47.0); Hemoglobin 6.7 GM/DL (12.0-16.0)
[2022-01-20] MEDS ORDERED: SODIUM CHLORIDE 0.9% 1,000 ML IV PRN (23:30)
[2022-01-21] MEDS: FLUTICASONE 50 MCG NASAL SPRAY 16 GM BOTTLE BOTH NARES SCH ×2 (00:13→20:44)
[2022-01-21] MEDS: INSULIN REGULAR 100 UNIT/ML SUBCUT SCH ×6 (00:28→20:08)
[2022-01-21] MEDS: LEVALBUTEROL 1.25 MG/3 ML NEB RESP TX SCH ×4 (00:40→18:51)
[2022-01-21] MEDS: MIDAZOLAM 100 MG in SODIUM CHLORIDE 0.9% 80 ML IV PRN (01:04)
[2022-01-21] MEDS: METOCLOPRAMIDE 10 MG/2 ML VIAL IV SCH ×3 (04:10→20:07)
[2022-01-21] MEDS: HYDROCORTISONE 100 MG VIAL IV SCH ×2 (04:10→12:03)
[2022-01-21 04:31] LABS: Arterial Base Excess iSTAT 2 MMOL/L (-2.5-2.5); Arterial Bicarbonate iSTAT 26.6 MMOL/L (20-26); Arterial O2 Saturation iSTAT 100 % (95-100); Arterial PCO2 iSTAT 41 MM HG (35-48); Arterial PO2 iSTAT 198 MM HG (80-95); Arterial Total CO2 iSTAT 28 MMO/L (23-27); Arterial pH iSTAT 7.423 (7.35-7.45)
[2022-01-21 05:07] LABS: Basophils % 0.3 % (0.0-0.8); Eosinophils # 0.1 10*3/uL (0.0-0.87); Eosinophils % 0.8 % (0.00-10.9); Hematocrit 24.5 VOL% (35.7-47.0); Hemoglobin 7.5 GM/DL (12.0-16.0); Immature Granulocytes % 1.7 %; Immature Granulocytes Absolute 0.13 #; Lymphocytes # 0.9 10*3/uL (1.4-4.0); Mean Corpuscular HGB Conc 30.6 GM/DL (32-36); Mean Corpuscular Volume 88.1 FL (87-102); Mean Platelet Volume 10.3 FL (9.6-12.0); Monocytes # 0.9 10*3/uL (0.11-0.8); Monocytes % 11.3 % (1.7-12.7); Neutrophils % 74.9 % (38.7-73.9); Platelet Count 122 T/CUMM (130-400); Red Blood Count 2.78 MC/CUMM (3.8-5.5); Red Cell Distribution Width 17.1 % (9.3-17.3); White Blood Count 7.9 T/CUMM (4-12)
[2022-01-21 05:37] LABS: Calcium 8.3 MG/DL (8.5-10.1); Osmolality,Calculated 298.7 MOS/KG (273-304); Potassium 3.6 MMOL/L (3.5-5.1)
[2022-01-21] MEDS: PANTOPRAZOLE 40 MG TABLET PO SCH (06:48)
[2022-01-21] MEDS: ROSUVASTATIN 20 MG TABLET PO SCH (09:18)
[2022-01-21] MEDS: LORATADINE 10 MG TABLET PO SCH (09:18)
[2022-01-21] MEDS: ASPIRIN EC 81 MG TABLET PO SCH (09:18)
[2022-01-21] MEDS: LEVOFLOXACIN INJ 500 MG/100 ML PREMIX IV SCH (09:20)
[2022-01-21] MEDS: PRASUGREL 10 MG TABLET PO SCH (09:22)
[2022-01-21] MEDS: POTASSIUM CHLORIDE 10 MEQ TABLET PO SCH ×2 (09:28→20:07)
[2022-01-21] MEDS: SODIUM CHLORIDE 0.9% 1,000 ML IV SCH ×2 (09:50→10:55)
[2022-01-21] MEDS ORDERED: METOPROLOL TARTRATE 25 MG TABLET PO SCH (10:00)
[2022-01-21 10:12] LABS: Hematocrit 24.6 VOL% (35.7-47.0); Hemoglobin 7.5 GM/DL (12.0-16.0)
[2022-01-21] MEDS ORDERED: FUROSEMIDE 20 MG/2 ML VIAL IV ONE (10:52)
[2022-01-21] MEDS ORDERED: SODIUM CHLORIDE 0.9% 1,000 ML IV PRN (10:53)
[2022-01-21] MEDS ORDERED: OXYMETAZOLINE 0.05% NASAL SPRAY 15 ML BOTTLE BOTH NARES PRN (11:38)
[2022-01-21] MEDS: FUROSEMIDE 40 MG/4 ML VIAL IV SCH (13:40)
[2022-01-21] MEDS ORDERED: METOPROLOL TARTRATE 5 MG/5 ML VIAL IV ONE (17:36)
[2022-01-21] MEDS ORDERED: METOPROLOL SUCCINATE XL 25 MG TABLET PO SCH (21:00)
[2022-01-22] MEDS ORDERED: HYDROCORTISONE 100 MG VIAL IV SCH
[2022-01-22] MEDS: LEVALBUTEROL 1.25 MG/3 ML NEB RESP TX SCH ×4 (00:20→19:44)
[2022-01-22] MEDS: INSULIN REGULAR 100 UNIT/ML SUBCUT SCH ×8 (03:35→20:51)
[2022-01-22] MEDS: METOCLOPRAMIDE 10 MG/2 ML VIAL IV SCH (03:37)
[2022-01-22 04:32] LABS: Basophils # 0.1 10*3/uL (0.0-0.2); Basophils % 0.5 % (0.0-0.8); Eosinophils # 0.6 10*3/uL (0.0-0.87); Eosinophils % 5.3 % (0.00-10.9); Hematocrit 30.8 VOL% (35.7-47.0); Hemoglobin 9.6 GM/DL (12.0-16.0); Immature Granulocytes % 3.4 %; Immature Granulocytes Absolute 0.39 #; Lymphocytes # 1.4 10*3/uL (1.4-4.0); Lymphocytes % 11.8 % (21.3-54.2); Mean Corpuscular HGB Conc 31.2 GM/DL (32-36); Mean Platelet Volume 9.6 FL (9.6-12.0); Monocytes # 1.4 10*3/uL (0.11-0.8); Monocytes % 12.4 % (1.7-12.7); Neutrophils % 66.6 % (38.7-73.9); Platelet Count 206 T/CUMM (130-400); Red Blood Count 3.58 MC/CUMM (3.8-5.5); Red Cell Distribution Width 17.3 % (9.3-17.3); White Blood Count 11.6 T/CUMM (4-12)
[2022-01-22 05:09] LABS: Calcium 8.4 MG/DL (8.5-10.1); Osmolality,Calculated 290.6 MOS/KG (273-304)
[2022-01-22] MEDS: MORPHINE 2 MG/1 ML SYRINGE IV PRN ×3 (05:45→21:45)
[2022-01-22] MEDS: SODIUM CHLORIDE 0.9% 1,000 ML IV SCH (05:47)
[2022-01-22] MEDS: PANTOPRAZOLE 40 MG TABLET PO SCH (07:18)
[2022-01-22] MEDS ORDERED: METOPROLOL TARTRATE 5 MG/5 ML VIAL IV ONE (07:47)
[2022-01-22] MEDS: PRASUGREL 10 MG TABLET PO SCH (08:48)
[2022-01-22] MEDS: POTASSIUM CHLORIDE 10 MEQ TABLET PO SCH ×2 (08:48→20:39)
[2022-01-22] MEDS: ASPIRIN EC 81 MG TABLET PO SCH (08:49)
[2022-01-22] MEDS: DAPAGLIFLOZIN 10 MG TABLET PO SCH (08:49)
[2022-01-22] MEDS: FUROSEMIDE 40 MG/4 ML VIAL IV SCH (08:50)
[2022-01-22] MEDS: SPIRONOLACTONE 25 MG TABLET PO SCH ×2 (08:51→20:40)
[2022-01-22] MEDS: LORATADINE 10 MG TABLET PO SCH (08:51)
[2022-01-22] MEDS: METOPROLOL SUCCINATE XL 25 MG TABLET PO SCH ×2 (08:51→20:40)
[2022-01-22] MEDS: POTASSIUM CHLORIDE 20 MEQ TABLET PO PRN ×2 (09:05→11:08)
[2022-01-22] MEDS: ROSUVASTATIN 20 MG TABLET PO SCH (09:05)
[2022-01-22] MEDS ORDERED: METOPROLOL TARTRATE 5 MG/5 ML VIAL IV PRN (15:49)
[2022-01-22] MEDS: FLUTICASONE 50 MCG NASAL SPRAY 16 GM BOTTLE BOTH NARES SCH (20:40)
[2022-01-23] MEDS: LEVALBUTEROL 1.25 MG/3 ML NEB RESP TX SCH ×4 (00:04→19:10)
[2022-01-23] MEDS: BENZONATATE 100 MG CAPSULE PO PRN ×2 (03:04→17:24)
[2022-01-23] MEDS: PANTOPRAZOLE 40 MG TABLET PO SCH (05:40)
[2022-01-23 05:43] LABS: Basophils % 0.3 % (0.0-0.8); Eosinophils # 0.7 10*3/uL (0.0-0.87); Eosinophils % 5.7 % (0.00-10.9); Hematocrit 28.7 VOL% (35.7-47.0); Hemoglobin 8.8 GM/DL (12.0-16.0); Immature Granulocytes % 1.9 %; Immature Granulocytes Absolute 0.23 #; Lymphocytes % 7.8 % (21.3-54.2); Mean Corpuscular HGB Conc 30.7 GM/DL (32-36); Mean Corpuscular Volume 87.8 FL (87-102); Mean Platelet Volume 10.1 FL (9.6-12.0); Monocytes # 1.4 10*3/uL (0.11-0.8); Neutrophils % 73.3 % (38.7-73.9); Platelet Count 222 T/CUMM (130-400); Red Blood Count 3.27 MC/CUMM (3.8-5.5); Red Cell Distribution Width 17.5 % (9.3-17.3); White Blood Count 12.4 T/CUMM (4-12)
[2022-01-23 06:22] LABS: Calcium 8.5 MG/DL (8.5-10.1); Osmolality,Calculated 282.1 MOS/KG (273-304); Potassium 3.4 MMOL/L (3.5-5.1)
[2022-01-23] MEDS: SPIRONOLACTONE 25 MG TABLET PO SCH ×2 (09:05→21:17)
[2022-01-23] MEDS: PRASUGREL 10 MG TABLET PO SCH (09:05)
[2022-01-23] MEDS: LORATADINE 10 MG TABLET PO SCH (09:05)
[2022-01-23] MEDS: ASPIRIN EC 81 MG TABLET PO SCH (09:05)
[2022-01-23] MEDS: METOPROLOL SUCCINATE XL 25 MG TABLET PO SCH ×2 (09:05→21:17)
[2022-01-23] MEDS: POTASSIUM CHLORIDE 10 MEQ TABLET PO SCH ×2 (09:05→21:17)
[2022-01-23] MEDS: ROSUVASTATIN 20 MG TABLET PO SCH (09:05)
[2022-01-23] MEDS: INSULIN REGULAR 100 UNIT/ML SUBCUT SCH ×4 (09:06→21:14)
[2022-01-23] MEDS: DAPAGLIFLOZIN 10 MG TABLET PO SCH (09:06)
[2022-01-23 10:16] LABS: Mucus,Urine Occasional /LPF (Occasional); RBC,Urine 1049 /HPF (0-4); Squamous Epithelial Cell,Urine Occasional /HPF (0-10); Urine Appearance Clear (Clear); Urine Color Orange (Yellow)
[2022-01-23 10:17] LABS: Bilirubin,Urine Small mg/dL (Negative); Blood, Urine Large mg/dL (Negative); Glucose,Urine (UA) 500 mg/dL (Negative); Ketones,Urine 40 mg/dL (Negative); Nitrite,Urine Negative (Negative); Protein,Urine 100 mg/dL (Negative); Urine Specific Gravity 1.025 (1.001-1.035); Urine Urobilinogen 0.2 eU/dL (<2.0); Urine pH 6.5 (4.5-8.0)
[2022-01-23] MEDS ORDERED: POTASSIUM CHLORIDE 20 MEQ TABLET PO ONE (10:33)
[2022-01-23] MEDS: FLUTICASONE 50 MCG NASAL SPRAY 16 GM BOTTLE BOTH NARES SCH (21:21)
[2022-01-24] MEDS: LEVALBUTEROL 1.25 MG/3 ML NEB RESP TX SCH ×4 (00:20→19:03)
[2022-01-24] MEDS: BENZONATATE 100 MG CAPSULE PO PRN ×2 (04:00→20:35)
[2022-01-24 04:58] LABS: Basophils % 0.2 % (0.0-0.8); Eosinophils # 0.6 10*3/uL (0.0-0.87); Eosinophils % 7.4 % (0.00-10.9); Hemoglobin 7.8 GM/DL (12.0-16.0); Immature Granulocytes % 1.6 %; Immature Granulocytes Absolute 0.13 #; Lymphocytes # 0.7 10*3/uL (1.4-4.0); Lymphocytes % 8.6 % (21.3-54.2); Mean Corpuscular Volume 87.5 FL (87-102); Monocytes # 1.4 10*3/uL (0.11-0.8); Monocytes % 16.6 % (1.7-12.7); Neutrophils % 65.6 % (38.7-73.9); Platelet Count 235 T/CUMM (130-400); Red Blood Count 2.97 MC/CUMM (3.8-5.5); Red Cell Distribution Width 17.2 % (9.3-17.3); White Blood Count 8.2 T/CUMM (4-12)
[2022-01-24 05:19] LABS: Calcium 8.4 MG/DL (8.5-10.1); Osmolality,Calculated 283.4 MOS/KG (273-304); Potassium 3.1 MMOL/L (3.5-5.1)
[2022-01-24 05:25] LABS: Eosinophils 10 % (0-10); Hypochromia Slight; Lymphocytes 8 % (20-55); Platelet Estimate Adequate; Total Cells Counted 100
[2022-01-24] MEDS: PANTOPRAZOLE 40 MG TABLET PO SCH (06:06)
[2022-01-24] MEDS ORDERED: POTASSIUM CHLORIDE 20 MEQ TABLET PO ONE (08:20)
[2022-01-24] MEDS: ROSUVASTATIN 20 MG TABLET PO SCH (08:38)
[2022-01-24] MEDS: VALSARTAN 80 MG TABLET PO SCH (08:38)
[2022-01-24] MEDS: DAPAGLIFLOZIN 10 MG TABLET PO SCH (08:38)
[2022-01-24] MEDS: INSULIN REGULAR 100 UNIT/ML SUBCUT SCH ×4 (08:38→22:30)
[2022-01-24] MEDS: PRASUGREL 10 MG TABLET PO SCH (08:38)
[2022-01-24] MEDS: ASPIRIN EC 81 MG TABLET PO SCH (08:38)
[2022-01-24] MEDS: METOPROLOL SUCCINATE XL 25 MG TABLET PO SCH ×2 (08:39→20:36)
[2022-01-24] MEDS: SPIRONOLACTONE 25 MG TABLET PO SCH ×2 (08:39→20:36)
[2022-01-24] MEDS: POTASSIUM CHLORIDE 10 MEQ TABLET PO SCH ×2 (08:39→20:36)
[2022-01-24] MEDS: LORATADINE 10 MG TABLET PO SCH (08:39)
[2022-01-24] MEDS: FLUTICASONE 50 MCG NASAL SPRAY 16 GM BOTTLE BOTH NARES SCH (21:30)
[2022-01-25] MEDS: LEVALBUTEROL 1.25 MG/3 ML NEB RESP TX SCH ×4 (00:02→18:58)
[2022-01-25 05:20] LABS: Basophils % 0.3 % (0.0-0.8); Eosinophils # 0.5 10*3/uL (0.0-0.87); Eosinophils % 7.6 % (0.00-10.9); Hematocrit 26.5 VOL% (35.7-47.0); Immature Granulocytes Absolute 0.07 #; Lymphocytes # 0.8 10*3/uL (1.4-4.0); Lymphocytes % 11.4 % (21.3-54.2); Mean Corpuscular HGB Conc 30.2 GM/DL (32-36); Mean Platelet Volume 10.2 FL (9.6-12.0); Monocytes # 1.5 10*3/uL (0.11-0.8); Neutrophils % 58.7 % (38.7-73.9); Platelet Count 281 T/CUMM (130-400); Red Blood Count 3.01 MC/CUMM (3.8-5.5); Red Cell Distribution Width 17.3 % (9.3-17.3)
[2022-01-25 05:34] LABS: Calcium 8.4 MG/DL (8.5-10.1); Osmolality,Calculated 279.4 MOS/KG (273-304); Potassium 3.2 MMOL/L (3.5-5.1)
[2022-01-25 05:44] LABS: Eosinophils 5 % (0-10); Hypochromia Slight; Lymphocytes 12 % (20-55); Microcytosis Slight; Platelet Estimate Adequate; Total Cells Counted 100
[2022-01-25] MEDS: PANTOPRAZOLE 40 MG TABLET PO SCH (06:07)
[2022-01-25] MEDS: BENZONATATE 100 MG CAPSULE PO PRN ×2 (08:28→22:14)
[2022-01-25] MEDS: ROSUVASTATIN 20 MG TABLET PO SCH (08:28)
[2022-01-25] MEDS: ASPIRIN EC 81 MG TABLET PO SCH (08:28)
[2022-01-25] MEDS: METOPROLOL SUCCINATE XL 25 MG TABLET PO SCH ×2 (08:28→22:06)
[2022-01-25] MEDS: INSULIN REGULAR 100 UNIT/ML SUBCUT SCH ×4 (08:28→22:13)
[2022-01-25] MEDS: LORATADINE 10 MG TABLET PO SCH (08:28)
[2022-01-25] MEDS: SPIRONOLACTONE 25 MG TABLET PO SCH ×2 (08:28→22:06)
[2022-01-25] MEDS: POTASSIUM CHLORIDE 10 MEQ TABLET PO SCH ×2 (08:28→22:06)
[2022-01-25] MEDS: PRASUGREL 10 MG TABLET PO SCH (08:29)
[2022-01-25] MEDS: VALSARTAN 80 MG TABLET PO SCH (08:29)
[2022-01-25] MEDS: DAPAGLIFLOZIN 10 MG TABLET PO SCH (08:29)
[2022-01-25] MEDS ORDERED: POTASSIUM CHLORIDE 20 MEQ TABLET PO ONE (08:49)
[2022-01-25] MEDS: ASCORBIC ACID 500 MG TABLET PO SCH ×2 (09:08→22:06)
[2022-01-25] MEDS: FLUTICASONE 50 MCG NASAL SPRAY 16 GM BOTTLE BOTH NARES SCH (22:06)
[2022-01-26] MEDS: LEVALBUTEROL 1.25 MG/3 ML NEB RESP TX SCH ×4 (00:18→19:49)
[2022-01-26] MEDS: MORPHINE 2 MG/1 ML SYRINGE IV PRN (03:33)
[2022-01-26] MEDS: PANTOPRAZOLE 40 MG TABLET PO SCH (07:56)
[2022-01-26] MEDS: INSULIN REGULAR 100 UNIT/ML SUBCUT SCH ×4 (08:49→21:23)
[2022-01-26] MEDS: POTASSIUM CHLORIDE 10 MEQ TABLET PO SCH ×2 (09:39→20:28)
[2022-01-26] MEDS: ROSUVASTATIN 20 MG TABLET PO SCH (09:40)
[2022-01-26] MEDS: ASCORBIC ACID 500 MG TABLET PO SCH ×2 (09:40→20:29)
[2022-01-26] MEDS: METOPROLOL SUCCINATE XL 25 MG TABLET PO SCH ×2 (09:40→20:28)
[2022-01-26] MEDS: PRASUGREL 10 MG TABLET PO SCH (09:40)
[2022-01-26] MEDS: DAPAGLIFLOZIN 10 MG TABLET PO SCH (09:40)
[2022-01-26] MEDS: SPIRONOLACTONE 25 MG TABLET PO SCH ×2 (09:42→20:29)
[2022-01-26] MEDS: SACUBITRIL/VALSARTAN 49-51 MG TABLET PO SCH ×2 (09:42→20:28)
[2022-01-26] MEDS: ASPIRIN EC 81 MG TABLET PO SCH (09:42)
[2022-01-26] MEDS: LORATADINE 10 MG TABLET PO SCH (09:42)
[2022-01-26] MEDS: cilostazoL 50 MG TABLET PO SCH ×2 (10:38→20:28)
[2022-01-26] MEDS: FLUTICASONE 50 MCG NASAL SPRAY 16 GM BOTTLE BOTH NARES SCH (20:29)
[2022-01-26] MEDS: BENZONATATE 100 MG CAPSULE PO PRN (22:17)
[2022-01-27] MEDS: LEVALBUTEROL 1.25 MG/3 ML NEB RESP TX SCH ×5 (00:10→23:46)
[2022-01-27 05:26] LABS: Basophils % 0.3 % (0.0-0.8); Eosinophils # 0.5 10*3/uL (0.0-0.87); Eosinophils % 8.9 % (0.00-10.9); Hematocrit 28.3 VOL% (35.7-47.0); Hemoglobin 8.4 GM/DL (12.0-16.0); Immature Granulocytes % 0.7 %; Immature Granulocytes Absolute 0.04 #; Lymphocytes # 0.9 10*3/uL (1.4-4.0); Lymphocytes % 14.5 % (21.3-54.2); Mean Corpuscular HGB Conc 29.7 GM/DL (32-36); Monocytes # 0.8 10*3/uL (0.11-0.8); Monocytes % 13.4 % (1.7-12.7); Neutrophils % 62.2 % (38.7-73.9); Platelet Count 367 T/CUMM (130-400); Red Blood Count 3.18 MC/CUMM (3.8-5.5); Red Cell Distribution Width 16.8 % (9.3-17.3); White Blood Count 6.1 T/CUMM (4-12)
[2022-01-27 05:32] LABS: Calcium 8.4 MG/DL (8.5-10.1); Osmolality,Calculated 277.4 MOS/KG (273-304); Potassium 3.8 MMOL/L (3.5-5.1)
[2022-01-27] MEDS: PANTOPRAZOLE 40 MG TABLET PO SCH (07:16)
[2022-01-27] MEDS: INSULIN REGULAR 100 UNIT/ML SUBCUT SCH ×4 (07:43→20:58)
[2022-01-27] MEDS: SPIRONOLACTONE 25 MG TABLET PO SCH ×2 (10:02→20:57)
[2022-01-27] MEDS: SACUBITRIL/VALSARTAN 49-51 MG TABLET PO SCH ×2 (10:02→20:57)
[2022-01-27] MEDS: PRASUGREL 10 MG TABLET PO SCH (10:02)
[2022-01-27] MEDS: LORATADINE 10 MG TABLET PO SCH (10:03)
[2022-01-27] MEDS: ASCORBIC ACID 500 MG TABLET PO SCH ×2 (10:03→20:57)
[2022-01-27] MEDS: cilostazoL 50 MG TABLET PO SCH ×2 (10:03→20:57)
[2022-01-27] MEDS: DAPAGLIFLOZIN 10 MG TABLET PO SCH (10:03)
[2022-01-27] MEDS: METOPROLOL SUCCINATE XL 25 MG TABLET PO SCH ×2 (10:03→20:57)
[2022-01-27] MEDS: ASPIRIN EC 81 MG TABLET PO SCH (10:03)
[2022-01-27] MEDS: POTASSIUM CHLORIDE 10 MEQ TABLET PO SCH ×2 (10:07→20:56)
[2022-01-27] MEDS: ROSUVASTATIN 20 MG TABLET PO SCH (10:08)
[2022-01-27] MEDS ORDERED: FLUCONAZOLE 150 MG TABLET PO ONE (18:00)
[2022-01-27] MEDS: BENZONATATE 100 MG CAPSULE PO PRN (20:57)
[2022-01-27] MEDS: FLUTICASONE 50 MCG NASAL SPRAY 16 GM BOTTLE BOTH NARES SCH (20:58)
[2022-01-28] MEDS ORDERED: ACETAMINOPHEN 325 MG TABLET PO PRN (05:17)
[2022-01-28] MEDS: PANTOPRAZOLE 40 MG TABLET PO SCH (06:16)
[2022-01-28] MEDS: LEVALBUTEROL 1.25 MG/3 ML NEB RESP TX SCH (07:23)
[2022-01-28] MEDS: LORATADINE 10 MG TABLET PO SCH (09:42)
[2022-01-28] MEDS: cilostazoL 50 MG TABLET PO SCH (09:42)
[2022-01-28] MEDS: POTASSIUM CHLORIDE 10 MEQ TABLET PO SCH (09:42)
[2022-01-28] MEDS: SACUBITRIL/VALSARTAN 49-51 MG TABLET PO SCH (09:43)
[2022-01-28] MEDS: SPIRONOLACTONE 25 MG TABLET PO SCH (09:43)
[2022-01-28] MEDS: ROSUVASTATIN 20 MG TABLET PO SCH (09:43)
[2022-01-28] MEDS: ASPIRIN EC 81 MG TABLET PO SCH (09:43)
[2022-01-28] MEDS: PRASUGREL 10 MG TABLET PO SCH (09:43)
[2022-01-28] MEDS: DAPAGLIFLOZIN 10 MG TABLET PO SCH (09:43)
[2022-01-28] MEDS: METOPROLOL SUCCINATE XL 25 MG TABLET PO SCH (09:43)
[2022-01-28] MEDS: INSULIN REGULAR 100 UNIT/ML SUBCUT SCH ×2 (09:44→11:54)
[2022-01-28] MEDS: ASCORBIC ACID 500 MG TABLET PO SCH (09:44)
[2022-01-28 10:34] LABS: Basophils % 0.6 % (0.0-0.8); Eosinophils # 0.4 10*3/uL (0.0-0.87); Eosinophils % 7.6 % (0.00-10.9); Hematocrit 27.4 VOL% (35.7-47.0); Hemoglobin 8.3 GM/DL (12.0-16.0); Immature Granulocytes % 0.8 %; Immature Granulocytes Absolute 0.04 #; Lymphocytes # 0.7 10*3/uL (1.4-4.0); Mean Corpuscular HGB Conc 30.3 GM/DL (32-36); Mean Corpuscular Volume 87.5 FL (87-102); Mean Platelet Volume 9.6 FL (9.6-12.0); Monocytes # 0.7 10*3/uL (0.11-0.8); Monocytes % 13.8 % (1.7-12.7); Neutrophils % 63.2 % (38.7-73.9); Platelet Count 375 T/CUMM (130-400); Red Blood Count 3.13 MC/CUMM (3.8-5.5); Red Cell Distribution Width 16.8 % (9.3-17.3); White Blood Count 5.1 T/CUMM (4-12)
[2022-01-28 10:53] LABS: Calcium 8.8 MG/DL (8.5-10.1); Osmolality,Calculated 281.3 MOS/KG (273-304); Potassium 3.8 MMOL/L (3.5-5.1)
[2022-01-28 12:04] VITALS: BP 111/54
== END 2022-01-28 15:29 | disposition home health service (06) | DRG 215 ==
LOC: N.ED 12:45 → N.TELES 12:45 → SUATTDRO 16:46 → N.TELES 18:20 → N.ICU 01-15 11:24 → SUATTDRO 01-15 13:41 → N.ICU 01-15 16:52 → N.TELEN 01-22 18:26
PROVIDERS: ADMIT Family Medicine; ATTEND Internal Medicine Geriatric Medicine